=== PATIENT | female | born 1980 | race Caucasian/White ===

== ENCOUNTER 2016-12-28 13:42 | Emergency (ER) | payer SELFPAY ==
[2016-12-28 15:19] VITALS: BP 113/65
--- NOTE | 2016-12-28 16:26 | UC ---
Respiratory Complaint HPI - HPI Summary HPI Summary: URI symptoms for a week. Triggering her asthma. Smoker. No fever. Greenish phlegm, sinuses congested. SOB with exertion. Out of her inhaler. NO vomiting. - History of Current Complaint Chief Complaint: UCRespiratory Stated Complaint: COUGH-ASTHMA Time Seen by Provider: 12/28/16 16:09 Hx Obtained From: Patient Hx Last Menstrual Period: 2 weeks ago Onset/Duration: Gradual Onset Timing: Constant Severity Initially: Mild Severity Currently: Moderate Character: Sputum Description: - yellow/green Aggravating Factors: Exertion, Recumbent Position Alleviating Factors: Bronchodilator Associated Signs And Symptoms: Positive: Dyspnea, Wheezing - off and on, URI, Nasal Congestion, Hoarseness, Sinus Discomfort. Negative: Fever, Chills, Pleuritic Chest Pain - Risk Factors Pulmonary Embolism Risk Factors: Negative Cardiac Risk Factors: Negative Pseudomonas Risk Factors: Negative Tuberculosis Risk Factors: Negative - Allergies/Home Medications Allergies/Adverse Reactions: Allergies Allergy/AdvReac Type Severity Reaction Status Date / Time Kiwi Extract Allergy Vomiting Verified 12/28/16 15:18 Shrimp Flavor Allergy Vomiting Verified 12/28/16 15:18 PMH/Surg Hx/FS Hx/Imm Hx Endocrine History Of: Reports: Thyroid Disease - GRAVES DISEASE, HACHIMOTOS THYRIODITIS Denies: Diabetes Cardiovascular History Of: Denies: Cardiac Disorders, Hypertension Respiratory History Of: Reports: Asthma Denies: COPD GI/ History Of: Denies: Ulcer - Surgical History Surgical History: Yes Surgery Procedure, Year, and Place: Right tube removed r/t ectopic - Family History Known Family History: Positive: Respiratory Disease - asthma - Social History Occupation: Employed Full-time Lives: With Family Alcohol Use: Weekly Substance Use Type: Marijuana Substance Use Comment - Amount & Last Used: 3 days Smoking Status (MU): Heavy Every Day Tobacco Smoker Type: Cigarettes Amount Used/How Often: 1/2 - 1 ppd Length of Time of Smoking/Using Tobacco: started age 15 Have You Smoked in the Last Year: Yes Household Exposure Type: Cigarettes Review of Systems Constitutional: Fatigue Skin: Negative Eyes: Negative ENT: Nasal Discharge Respiratory: Shortness Of Breath, Cough Cardiovascular: Negative Gastrointestinal: Negative Genitourinary: Negative Motor: Negative Neurovascular: Negative Musculoskeletal: Negative Neurological: Negative Psychological: Negative All Other Systems Reviewed And Are Negative: Yes Physical Exam Triage Information Reviewed: Yes Appearance: Well-Appearing, No Pain Distress, Well-Nourished Vital Signs: Initial Vital Signs Temp 98.1 F 12/28/16 15:16 Pulse 90 12/28/16 15:16 Resp 16 12/28/16 15:16 BP 113/65 12/28/16 15:16 Pulse Ox 99 12/28/16 15:16 Vital Signs Reviewed: Yes Eye Exam: Normal ENT: Positive: Pharynx normal, Nasal congestion, TMs normal, Tonsillar swelling , Tonsillar exudate, Muffled/hoarse voice Neck exam: Normal Neck: Positive: Supple Respiratory Exam: Normal Respiratory: Positive: Lungs clear Cardiovascular Exam: Normal Musculoskeletal Exam: Normal Neurological Exam: Normal Psychological Exam: Normal Skin Exam: Normal UC Diagnostic Evaluation - Laboratory O2 Sat by Pulse Oximetry: 99 Respiratory Course/Dx - Differential Dx/Diagnosis Differential Diagnosis/HQI/PQRI: Bronchitis, Lower Resp Infection, Sinusitis Provider Diagnoses: URI Discharge - Discharge Plan Condition: Stable Disposition: HOME Prescriptions: Albuterol HFA INHALER* [Ventolin HFA Inhaler*] 1 - 2 puff INH Q4H PRN #1 mdi PRN Reason: Wheezing Amoxicillin CAP* 500 mg PO TID #30 cap Benzonatate CAP* [Tessalon CAP*] 100 mg PO TID PRN #30 cap PRN Reason: Cough predniSONE TAB* [Deltasone TAB*] 20 mg PO DAILY #14 tab Patient Education Materials: Upper Respiratory Infection (ED), Bronchospasm (ED ) Forms: *Work Release Referrals: Velasquez ADAMS,Jorje Segal [Primary Care Provider] -
== END 2016-12-28 16:28 | disposition home or self-care (01) ==
LOC: UCCORT 13:42
DX: J06.9 Acute upper respiratory infection, unspecified (principal); F12.90 Cannabis use, unspecified, uncomplicated; F17.210 Nicotine dependence, cigarettes, uncomplicated
CPT/HCPCS: 99212; G0463

== ENCOUNTER 2017-04-17 12:45 | Emergency (ER) | payer SELFPAY ==
[2017-04-17 13:11] VITALS: BP 144/97
--- NOTE | 2017-04-17 13:17 | UC ---
[facility] HPI - HPI Summary HPI Summary: complaint of dental pain that started approx 1.5 weeks ago pain has increased over the last 2 days lower left jaw and 3 teeth in the back are painful constant throbbing pain that radiates into her face and neck pain is worse with any chewing, sensitive to cold and heat bad taste in her mouth denies fever and chills has dental appt - [facility] taking advil , acetaminophen or ibuprofen with some relief - History of Current Complaint Chief Complaint: UCDentalProblem Stated Complaint: DENTAL PAIN Time Seen by Provider: 04/17/17 13:05 Hx Obtained From: Patient Hx Last Menstrual Period: 03/24/17 - Allergies/Home Medications Allergies/Adverse Reactions: Allergies Allergy/AdvReac Type Severity Reaction Status Date / Time Kiwi Extract Allergy Vomiting Verified 04/17/17 12:58 Shrimp Flavor Allergy Vomiting Verified 04/17/17 12:58 Home Medications: Home Medications Ibuprofen [Advil] 400 mg PO Q6HR PRN 04/17/17 [History Confirmed 04/17/17] Naproxen Sodium-Diphenhydramin [Aleve PM 220-25 mg] 1 tab PO BID PRN 04/17/17 [ History Confirmed 04/17/17] PMH/Surg Hx/FS Hx/Imm Hx Previously Healthy: Yes Endocrine History Of: Reports: Thyroid Disease - GRAVES DISEASE, HACHIMOTOS THYRIODITIS Denies: Diabetes Cardiovascular History Of: Denies: Cardiac Disorders, Hypertension Respiratory History Of: Reports: Asthma Denies: COPD GI/ History Of: Denies: Ulcer - Surgical History Surgical History: Yes Surgery Procedure, Year, and Place: Right fallopian tube removed r/t ectopic - Family History Known Family History: Positive: Respiratory Disease - asthma Negative: Cardiac Disease, Hypertension - Social History Occupation: Employed Full-time Lives: With Family Alcohol Use: Occasionally Substance Use Type: None, Marijuana Substance Use Comment - Amount & Last Used: 3 days Smoking Status (MU): Heavy Every Day Tobacco Smoker Type: Cigarettes Amount Used/How Often: 1 ppd Length of Time of Smoking/Using Tobacco: started age 15 Have You Smoked in the Last Year: Yes Household Exposure Type: Cigarettes Cessation Counseling: Patient Advised to Stop Review of Systems Constitutional: Negative Skin: Negative Eyes: Negative ENT: Dental Pain Respiratory: Negative Cardiovascular: Negative Gastrointestinal: Negative Genitourinary: Negative Motor: Negative Neurovascular: Negative Musculoskeletal: Negative Neurological: Negative Psychological: Negative All Other Systems Reviewed And Are Negative: Yes Physical Exam Triage Information Reviewed: Yes Appearance: Well-Nourished, Pain Distress, Obese Vital Signs: Initial Vital Signs Temp 97.8 F 04/17/17 12:50 Pulse 89 04/17/17 12:50 Resp 16 04/17/17 12:50 BP 144/97 04/17/17 12:50 Pulse Ox 100 04/17/17 12:50 Vital Signs Reviewed: Yes Eyes: Positive: Conjunctiva Clear ENT: Positive: Pharynx normal, TMs normal. Negative: Nasal congestion Dental: Positive: Gross Decay/Caries @ - 17 and 18 Neck: Positive: No Lymphadenopathy Respiratory: Positive: Lungs clear, Normal breath sounds, No respiratory distress Cardiovascular: Positive: RRR, No Murmur, Pulses Normal Abdomen Description: Positive: Nontender, Soft Bowel Sounds: Positive: Present Musculoskeletal: Positive: No Edema Neurological: Positive: Alert Psychological Exam: Normal Skin Exam: Normal Dental Complaint Course/Dx - Course Course Of Treatment: exam completed. will treat with antibiotic d/t swelling in her gums surrounding dental caries. pt currently trying to get - reviewed available safety rating of antibiotics and pt willing to take risk at this time - Differential Dx/Diagnosis Differential Diagnosis/Dx: Dental Abscess, Dental Caries Provider Diagnoses: dental pain , dental caries, elevated blood pressure Discharge - Discharge Plan Condition: Stable Disposition: HOME Prescriptions: Amoxicillin/Clavulanate TAB* [Augmentin TAB 875*] 875 mg PO BID #20 tab Patient Education Materials: Dental Abscess (ED) Referrals: Velasquez ADAMS,Jorje Segal [Primary Care Provider] - Additional Instructions: ABSCESS What is an Abscess? An abscess is a collection of pus caused by an infection. It may be a simple infected hair follicle, a boil, or an infection caused by a puncture wound, an untreated wound, or an abrasion. The abscess may come to a head and rupture. Sometimes the abscess may need to be cut open and drained to remove the pus and tissue. Symptoms May Include: Skin redness over the infected area Tight, glossy, "stretched" appearance of the skin Pain or tenderness of the area The affected area may be warm or hot to touch Thin red line (along a vein) from the abscess toward the heart Fever Treatment Recommendations: Apply warm wet compresses to the infected area several times a day. If a dressing was applied, keep it clean and dry. The healthcare provider may have prescribed an antibiotic medicine. The medicine should be taken until it is completely gone, even if you are feeling better. If you stop taking the medicine early, the infection may not be completely gone, and the medication may not work the next time. You should have the abscess rechecked by your healthcare provider as instructed by the emergency department healthcare provider. If a drain was put in the abscess, keep the dressing clean and dry. You may need to change the dressing if it becomes soaked with drainage. It is very important to follow-up with your own healthcare provider as directed. The drain should be removed and the wound rechecked in 2 to 3 days or as directed. Call Your Doctor or Return Here IF: You are not improving, or the abscess looks like it is getting worse. The wound turns red and starts to swell again, or there are red streaks coming from the wound. You develop a fever that does not go down when you take fever medicine such as acetaminophen (Tylenol). The wound continues to leak pus after the drain is removed. You have any new symptoms that worry you. Your blood pressure is elevated. Please contact your primary care provider within 1 day -4 weeks for further evaluation.
== END 2017-04-17 13:33 | disposition home or self-care (01) ==
LOC: UCEAST 12:45
DX: K02.9 Dental caries, unspecified (principal); R03.0 Elevated blood-pressure reading, without diagnosis of hypertension
CPT/HCPCS: 99212; G0463

== ENCOUNTER 2017-05-03 13:04 | Emergency (ER) | payer SELFPAY ==
[2017-05-03 13:17] VITALS: BP 141/95
--- NOTE | 2017-05-03 13:24 | UC ---
Throat Pain/Nasal Luis HPI - HPI Summary HPI Summary: Throat pain and swelling starting 2 days ago, lots of pain with swallowing. Lives with friend and friend's 4 school-aged children. Denies known fever, nasal congestion, cough, or trouble breathing. Is supposed to work today and tomorrow. No rash or vomiting. - History of Current Complaint Stated Complaint: SORE THROAT Time Seen by Provider: 05/03/17 13:13 Hx Obtained From: Patient Hx Last Menstrual Period: 2 weeks ago ?: No Onset/Duration: Gradual Onset, Lasting Days Cough: None - Allergies/Home Medications Allergies/Adverse Reactions: Allergies Allergy/AdvReac Type Severity Reaction Status Date / Time Kiwi Extract Allergy Vomiting Verified 05/03/17 13:22 Shrimp Flavor Allergy Vomiting Verified 05/03/17 13:22 Home Medications: Home Medications Loratadine [Claritin 10 MG CAP] 10 mg PO DAILY 05/03/17 [History Confirmed 05/03] PMH/Surg Hx/FS Hx/Imm Hx Previously Healthy: Yes - Surgical History Surgical History: Yes Surgery Procedure, Year, and Place: Right tube removed r/t ectopic - Family History Known Family History: Positive: Respiratory Disease - asthma Negative: Cardiac Disease, Hypertension - Social History 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 [employer] Alcohol Use: Weekly Substance Use Type: Marijuana Substance Use Comment - Amount & Last Used: 3 days Smoking Status (MU): Heavy Every Day Tobacco Smoker Type: Cigarettes Amount Used/How Often: 1/2 - 1 ppd Length of Time of Smoking/Using Tobacco: started age 15 Have You Smoked in the Last Year: Yes Household Exposure Type: Cigarettes Review of Systems Constitutional: Negative Skin: Negative Eyes: Negative ENT: Sore Throat Respiratory: Negative Cardiovascular: Negative Gastrointestinal: Negative Genitourinary: Negative Motor: Negative Neurovascular: Negative Musculoskeletal: Negative Neurological: Negative Psychological: Negative All Other Systems Reviewed And Are Negative: Yes Physical Exam Triage Information Reviewed: Yes Appearance: Well-Appearing, No Pain Distress, Well-Nourished Vital Signs Reviewed: Yes Eye Exam: Normal Eyes: Positive: Conjunctiva Clear ENT: Positive: Hearing grossly normal, Pharyngeal erythema, TMs normal, Tonsillar swelling Dental Exam: Normal Neck: Positive: Enlarged Nodes @ - tonsillar Respiratory Exam: Normal Respiratory: Positive: Chest non-tender, Lungs clear, Normal breath sounds, No respiratory distress, No accessory muscle use Cardiovascular: Positive: RRR - 90s on exam, No Murmur Musculoskeletal Exam: Normal Neurological Exam: Normal Neurological: Positive: Alert Psychological Exam: Normal Skin Exam: Normal Throat Pain/Nasal Course/Dx - Course Course Of Treatment: RST negative - Differential Dx/Diagnosis Provider Diagnoses: Tonsillitis, likely viral. Elevated blood pressure due to pain Discharge - Discharge Plan Condition: Stable Disposition: HOME Patient Education Materials: Tonsillitis (ED) Forms: *Work Release Referrals: Velasquez ADAMS,Jorje Segal [Primary Care Provider] - Additional Instructions: Rapid strep test negative. While you are probably going to be uncomfortable for a few days, I do expect you to have clear and steady improvement through next week. Symptoms should be more or less resolved within 10 days. See your primary care provider or return here if you have new or worsening symptoms.
== END 2017-05-03 13:38 | disposition home or self-care (01) ==
LOC: UCEAST 13:04
DX: J03.90 Acute tonsillitis, unspecified (principal); R03.0 Elevated blood-pressure reading, without diagnosis of hypertension; Z72.0 Tobacco use
CPT/HCPCS: 84702; 87651; 99211; G0463

== ENCOUNTER 2017-08-20 21:59 | Emergency (ER) | payer SELFPAY ==
[2017-08-20 22:06] VITALS: BP 135/87
[2017-08-20] MEDS ORDERED: Azithromycin TAB* 250 MG PO ONE (22:13)
[2017-08-20] MEDS ORDERED: guaiFENesin/CODIEN 100MG-10MG* 5 ML UDC PO ONE (22:13)
--- NOTE | 2017-08-20 22:13 | UC ---
Respiratory Complaint HPI - HPI Summary HPI Summary: 37 YEAR OLD FEMALE PRESENTS WITH COMPLAINS OF COUGH AND CHEST CONGESTION. - History of Current Complaint Chief Complaint: UCRespiratory Stated Complaint: SORE THROAT, CHEST CONGESTION, AND ANXIETY Time Seen by Provider: 08/20/17 22:10 Hx Obtained From: Patient Hx Last Menstrual Period: 08/08/17 Onset/Duration: Sudden Onset Severity Initially: Moderate Severity Currently: Moderate Pain Scale Used: 0-10 Numeric - 5 Aggravating Factors: Deep Breaths Alleviating Factors: Bronchodilator, Upright Position Associated Signs And Symptoms: Positive: Fever, Chills, Wheezing, Nasal Congestion, Sinus Discomfort Related History: Seasonal Allergies - Allergies/Home Medications Allergies/Adverse Reactions: Allergies Allergy/AdvReac Type Severity Reaction Status Date / Time Kiwi Extract Allergy Vomiting Verified 08/20/17 22:06 Shrimp Flavor Allergy Vomiting Verified 08/20/17 22:06 PMH/Surg Hx/FS Hx/Imm Hx Previously Healthy: Yes - Surgical History Surgical History: Yes Surgery Procedure, Year, and Place: Right tube removed r/t ectopic - Family History Known Family History: Positive: Respiratory Disease - asthma Negative: Cardiac Disease, Hypertension - Social History Alcohol Use: Weekly Substance Use Type: Marijuana Substance Use Comment - Amount & Last Used: 3 days Smoking Status (MU): Heavy Every Day Tobacco Smoker Type: Cigarettes Amount Used/How Often: 1/2 - 1 ppd Length of Time of Smoking/Using Tobacco: started age 15 Have You Smoked in the Last Year: Yes Household Exposure Type: Cigarettes Review of Systems Constitutional: Negative Skin: Negative Eyes: Negative ENT: Negative Respiratory: Shortness Of Breath, Cough Cardiovascular: Negative Gastrointestinal: Negative Genitourinary: Negative Motor: Negative Neurovascular: Negative Musculoskeletal: Negative Neurological: Negative Psychological: Negative All Other Systems Reviewed And Are Negative: Yes Physical Exam Triage Information Reviewed: Yes Appearance: Well-Appearing Vital Signs: Initial Vital Signs Temp 36.9 C 08/20/17 22:02 Pulse 109 08/20/17 22:02 Resp 20 08/20/17 22:02 BP 135/87 08/20/17 22:02 Pulse Ox 100 08/20/17 22:02 Vital Signs Reviewed: Yes Eye Exam: Normal ENT Exam: Normal Dental Exam: Normal Neck exam: Normal Neck: Positive: 1 Respiratory: Positive: Rhonchi, Wheezing Cardiovascular Exam: Normal Abdominal Exam: Normal Musculoskeletal Exam: Normal Neurological Exam: Normal Psychological Exam: Normal Skin Exam: Normal UC Diagnostic Evaluation - Laboratory O2 Sat by Pulse Oximetry: 100 Respiratory Course/Dx - Differential Dx/Diagnosis Provider Diagnoses: COUGH. CHEST CONGESTION. NAUSEA. VOMITTING Discharge - Discharge Plan Condition: Stable Disposition: HOME Prescriptions: Albuterol HFA INHALER* [Ventolin HFA Inhaler*] 1 puff INH Q6H PRN #1 mdi PRN Reason: Wheezing Azithromyxin JORGE (NF) [Z-Jorge (Zithromax) 250 mg tabs #6] 2 tab PO .TODAY, THEN 1 DAILY #6 tab guaiFENesin/CODIEN 100MG-10MG* [Robitussin AC 100Mg-10Mg*] 5 ml PO Q6H PRN #120 ml MDD 20 ML PRN Reason: Cough predniSONE TAB* [Deltasone TAB*] 40 mg PO DAILY #8 tab Patient Education Materials: Cold Symptoms (ED), Asthma (ED), Bronchospasm (ED) Referrals: Velasquez ADAMS,Jorje Segal [Primary Care Provider] -
[2017-08-20] MEDS ORDERED: predniSONE TAB* 20 MG PO ONE (22:14)
[2017-08-20] MEDS ORDERED: Albuterol 2.5 MG/3 ML NEB.SOL* (0.083%) INH ONE (22:14)
== END 2017-08-20 22:45 | disposition home or self-care (01) ==
LOC: UCEAST 21:59
DX: R05 Cough (principal); R09.89 Other specified symptoms and signs involving the circulatory and respiratory systems; R11.2 Nausea with vomiting, unspecified; F12.90 Cannabis use, unspecified, uncomplicated; F17.210 Nicotine dependence, cigarettes, uncomplicated
CPT/HCPCS: 99213; A9270-GY; G0463; J7512

== ENCOUNTER 2017-09-10 09:25 | Emergency (ER) | payer SELFPAY ==
[2017-09-10 10:20] VITALS: BP 149/85
--- NOTE | 2017-09-10 10:45 | UC ---
Dental HPI - HPI Summary HPI Summary: THREE DAYS OF BILATERAL LOWER DENTAL PAIN. HAD SIMILAR PROBLEM IN MARCH 2017, HAD DENTAL APPT BUT CANCELLED APPT. NO FEVER. HAS HAD SINUS CONGESTION FOR TWO WEEKS. - History of Current Complaint Chief Complaint: UCDentalProblem Stated Complaint: DENTAL PAIN Time Seen by Provider: 09/10/17 10:02 Hx Obtained From: Patient, Family/Inventory Checker Hx Last Menstrual Period: 08/20/17 Onset/Duration: Gradual Onset, Lasting Weeks, Worse Since - 3 DAYS Severity: Moderate Pain Intensity: 10 Pain Scale Used: 0-10 Numeric - Allergies/Home Medications Allergies/Adverse Reactions: Allergies Allergy/AdvReac Type Severity Reaction Status Date / Time Kiwi Extract Allergy Vomiting Verified 09/10/17 09:58 Shrimp Flavor Allergy Vomiting Verified 09/10/17 09:58 Home Medications: Home Medications Albuterol HFA INHALER* [Ventolin HFA Inhaler*] 1 - 2 puff INH Q4H PRN 09/10/17 [ History Confirmed 09/10/17] Ibuprofen TAB* [Advil TAB*] 400 mg PO Q6H PRN 09/10/17 [History Confirmed ] Naproxen Sodium [Naproxen Sodium 220 mg] 440 mg PO Q12H PRN 09/10/17 [History Confirmed 09/10/17] PMH/Surg Hx/FS Hx/Imm Hx Previously Healthy: Yes - Surgical History Surgical History: Yes Surgery Procedure, Year, and Place: Right tube removed r/t ectopic - Family History Known Family History: Positive: Respiratory Disease - asthma Negative: Cardiac Disease, Hypertension - Social History Occupation: Employed Full-time Lives: With Family Alcohol Use: Occasionally Substance Use Type: None Substance Use Comment - Amount & Last Used: 3 days Smoking Status (MU): Heavy Every Day Tobacco Smoker Type: Cigarettes Amount Used/How Often: 1 PPD Length of Time of Smoking/Using Tobacco: Since Age 19 Have You Smoked in the Last Year: Yes Household Exposure Type: Cigarettes Cessation Counseling: Patient Advised to Stop - Immunization History Most Recent Influenza Vaccination: Not the 2016/2017 Season Review of Systems Constitutional: Negative Skin: Negative Eyes: Negative ENT: Dental Pain, Nasal Discharge, Sinus Congestion Respiratory: Cough Cardiovascular: Negative Gastrointestinal: Negative Genitourinary: Negative Motor: Negative Neurovascular: Negative Musculoskeletal: Negative Neurological: Negative Psychological: Negative Is Patient Immunocompromised?: No All Other Systems Reviewed And Are Negative: Yes Physical Exam Triage Information Reviewed: Yes Appearance: Well-Appearing, Well-Nourished, Pain Distress - MODERATE Vital Signs: Initial Vital Signs Temp 98.2 F 09/10/17 09:56 Pulse 88 09/10/17 09:56 Resp 16 09/10/17 09:56 BP 149/85 09/10/17 09:56 Pulse Ox 100 09/10/17 09:56 Vital Signs Reviewed: Yes Eye Exam: Normal ENT: Positive: Nasal congestion, TM bulging, TM dull Dental: Positive: Percussion Tenderness @ - 18, 17, 31, 32 Neck exam: Normal Neck: Positive: Supple, Nontender, No Lymphadenopathy Respiratory Exam: Normal Respiratory: Positive: Chest non-tender, Lungs clear, Normal breath sounds, No respiratory distress, No accessory muscle use, Respiratory distress Cardiovascular Exam: Normal Cardiovascular: Positive: RRR, No Murmur, Pulses Normal, Brisk Capillary Refill , Tachycardia Abdominal Exam: Normal Musculoskeletal Exam: Normal Neurological Exam: Normal Psychological Exam: Normal Psychological: Positive: Normal Response To Family Skin Exam: Normal Dental Complaint Course/Dx - Differential Dx/Diagnosis Differential Diagnosis/Dx: Post Extraction Pain, TMJ Syndrome, Tonsillitis Provider Diagnoses: ODONTOGENIC PAIN (#17,18, 31, 32); SINUSITIS Discharge - Discharge Plan Condition: Stable Disposition: HOME Prescriptions: Amoxicillin/Clavulanate TAB* [Augmentin TAB 875*] 875 mg PO BID #20 tab Chlorhexidine MOUTHWASH 0.12%* [Peridex Mouth Wash 0.12%*] 15 ml MT BID #150 ml Patient Education Materials: Dental Abscess (ED), Sinusitis (ED), Toothache (ED ) Forms: *Work Release Referrals: Velasquez ADAMS,Jorje Segal [Primary Care Provider] - [facility]: 1 - PAIN HERE 2 - PAIN HERE
== END 2017-09-10 10:35 | disposition home or self-care (01) ==
LOC: UCCORT 09:25
DX: K08.89 Other specified disorders of teeth and supporting structures (principal); J32.9 Chronic sinusitis, unspecified; F17.210 Nicotine dependence, cigarettes, uncomplicated; Z71.6 Tobacco abuse counseling; Z91.013 Allergy to seafood; Z91.02 Food additives allergy status
CPT/HCPCS: 99212; G0463

== ENCOUNTER 2017-10-23 21:18 | Emergency (ER) | payer SELFPAY ==
[2017-10-23] MEDS ORDERED: LORazepam INJ* 2 MG/ML 1 ML VIAL IM ONE (21:41)
--- NOTE | 2017-10-23 21:45 | UC ---
Respiratory Complaint HPI - HPI Summary HPI Summary: 37yo female presents with 2 days of cough felt tight and took albuterol she often has anxiety and this exacerbates it feels light headed and SOB pulse rapid - History of Current Complaint Chief Complaint: UCRespiratory Stated Complaint: resp complaint Time Seen by Provider: 10/23/17 21:28 Hx Obtained From: Patient Hx Last Menstrual Period: one week ago Onset/Duration: Gradual Onset, Lasting Days Timing: Constant Severity Initially: Mild Severity Currently: Severe Pain Intensity: 2 Pain Scale Used: 0-10 Numeric Character: Cough: Nonproductive Associated Signs And Symptoms: Positive: Dyspnea, Wheezing - Allergies/Home Medications Allergies/Adverse Reactions: Allergies Allergy/AdvReac Type Severity Reaction Status Date / Time Kiwi Extract Allergy Vomiting Verified 10/23/17 21:24 Shrimp Flavor Allergy Vomiting Verified 10/23/17 21:24 PMH/Surg Hx/FS Hx/Imm Hx Previously Healthy: Yes Endocrine History: Other Other Endocrine History: Graves Disease Respiratory History: Asthma Psychological History: Anxiety - Surgical History Surgical History: Yes Surgery Procedure, Year, and Place: Right tube removed r/t ectopic - Family History Known Family History: Positive: Respiratory Disease - asthma Negative: Cardiac Disease, Hypertension - Social History Alcohol Use: Occasionally Substance Use Type: Marijuana Substance Use Comment - Amount & Last Used: 3 days Smoking Status (MU): Heavy Every Day Tobacco Smoker Type: Cigarettes Amount Used/How Often: 1/2 - 1 ppd Length of Time of Smoking/Using Tobacco: started age 15 Have You Smoked in the Last Year: Yes Household Exposure Type: Cigarettes - Immunization History Most Recent Influenza Vaccination: Not the 2016/2017 Season Review of Systems Constitutional: Negative Skin: Negative Eyes: Negative ENT: Negative Respiratory: Shortness Of Breath, Cough Cardiovascular: Negative Gastrointestinal: Negative Genitourinary: Negative Motor: Negative Neurovascular: Negative Musculoskeletal: Negative Neurological: Negative Psychological: Anxious Is Patient Immunocompromised?: No All Other Systems Reviewed And Are Negative: Yes Physical Exam Triage Information Reviewed: Yes Appearance: Well-Appearing, No Pain Distress, Well-Nourished Vital Signs: Initial Vital Signs Temp 98.1 F 10/23/17 21:21 Pulse 116 10/23/17 21:21 Resp 18 10/23/17 21:21 BP 129/97 10/23/17 21:21 Pulse Ox 100 10/23/17 21:21 Vital Signs Reviewed: Yes Eyes: Positive: Conjunctiva Clear ENT: Positive: Hearing grossly normal, Uvula midline. Negative: Nasal congestion, Nasal drainage, Muffled voice, Hoarse voice, Dental tenderness, Sinus tenderness Neck: Positive: Supple, Nontender, No Lymphadenopathy Respiratory: Positive: Lungs clear, Normal breath sounds, No respiratory distress, No accessory muscle use Cardiovascular: Positive: RRR, No Murmur, Tachycardia - 110 during my exam Musculoskeletal: Positive: ROM Intact, No Edema Neurological: Positive: Alert Psychological Exam: Normal UC Diagnostic Evaluation - Laboratory O2 Sat by Pulse Oximetry: 100 Re-Evaluation - Re-Evaluation First Eval Re-Evaluation Time: 22:31 Change: Improved - feels much better no longer tachy Respiratory Course/Dx - Differential Dx/Diagnosis Provider Diagnoses: bronchitis. anxiety Discharge - Discharge Plan Condition: Stable Disposition: HOME Prescriptions: Albuterol HFA INHALER* [Ventolin HFA Inhaler*] 2 puff INH QID #1 mdi Amoxicillin PO (*) [Amoxicillin 875 MG (*)] 875 mg PO BID #20 tab hydrOXYzine HCL TAB* [Atarax TAB*] 25 mg PO QID PRN #20 tab PRN Reason: Anxiety Prednisone [Deltasone] 40 mg PO DAILY #10 tab Referrals: Velasquez ADAMS,Jorje Segal [Primary Care Provider] - [facility] [Outside] - As Soon As Possible Additional Instructions: please return for new or worsening symptoms
[2017-10-23 22:22] VITALS: BP 129/86
== END 2017-10-23 22:38 | disposition home or self-care (01) ==
LOC: UCEAST 21:18
DX: J40 Bronchitis, not specified as acute or chronic (principal); F12.980 Cannabis use, unspecified with anxiety disorder; Z72.0 Tobacco use
CPT/HCPCS: 96372; 99212; G0463; J2060

== ENCOUNTER 2018-01-08 22:57 | Emergency (ER) | payer SELFPAY ==
--- NOTE | 2018-01-09 00:27 | ED ---
Throat Pain/Nasal Congestion - HPI Summary HPI Summary: 37 female presents to ED with complaints of right lower dental pain that began a few days ago and has worsened since. Patient states she has been suffering from dental pain for the past few weeks and has been on amoxicillin and then clindamycin. Has been off antibiotics for a week, pain and infection improved however appears to have returned. 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 Is awaiting for her dentist to pull fractured tooth. Concerned that infection has returned due to pain, throbbing and unable to chew. No redness or drainage. No other complaints at this time. Denies fever. No PMHx. Has been taking naproxen, ibuprofen, chlorahexidine, salt water swishes, oral gel, and tylenol without relief. 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 Denies: Hx Diabetes Cardiovascular History: Denies: Hx Hypertension Respiratory History: Reports: Hx Asthma Denies: Hx Chronic Obstructive Pulmonary Disease (COPD) GI History: Denies: Hx Ulcer - Surgical History Surgery Procedure, Year, and Place: Right tube removed r/t ectopic - Immunization History Immunizations Up to Date: Yes Infectious Disease History: No Infectious Disease History: Denies: Hx Clostridium Difficile, Hx Hepatitis, Hx Human Immunodeficiency Virus (HIV), Hx of Known/Suspected MRSA, Hx Shingles, Hx Tuberculosis, Hx Known/ Suspected VRE, Hx Known/Suspected VRSA, History Other Infectious Disease, Traveled Outside the [place] in Last 30 Days - Family History Known Family History: Positive: Respiratory Disease - asthma Negative: Cardiac Disease, Hypertension - Social History Alcohol Use: Occasionally Substance Use Type: Reports: Marijuana Substance Use Comment - Amount & Last Used: 3 days Smoking Status (MU): Heavy Every Day Tobacco Smoker Type: Cigarettes Amount Used/How Often: 1/2 - 1 ppd Length of Time of Smoking/Using Tobacco: started age 15 Have You Smoked in the Last Year: Yes Review of Systems Constitutional: Negative Positive: Dental Pain Cardiovascular: Negative Respiratory: Negative All Other Systems Reviewed And Are Negative: Yes Physical Exam Triage Information Reviewed: Yes Vital Signs On Initial Exam: Initial Vitals Temp Pulse Resp BP Pulse Ox 98.2 F 99 18 146/93 100 01/08/18 23:04 01/08/18 23:04 01/08/18 23:04 01/08/18 23:04 01/08/18 23:04 Vital Signs Reviewed: Yes Appearance: Positive: Well-Appearing, Well-Nourished, Pain Distress - mild to moderate Skin: Positive: Warm, Skin Color Reflects Adequate Perfusion, Dry. Negative: Cold, Numb, Cyanosis @, Pale, Other Head/Face: Positive: Normal Head/Face Inspection ENT: Positive: Normal ENT inspection, Hearing grossly normal, Pharynx normal, TMs normal Dental: Positive: Percussion Tenderness @ - right lower #1-2 tooth, Gross Decay/ Caries @, Dental Fracture @ - #1-2, Other - no obvious edema or erythema. Negative: Cervical Lymphadenopathy Neck: Positive: Supple, Nontender, No Lymphadenopathy Respiratory/Lung Sounds: Positive: Clear to Auscultation, Breath Sounds Present. Negative: Rales, Rhonchi, Wheezes Cardiovascular: Positive: Normal, RRR, Pulses are Symmetrical in both Upper and Lower Extremities. Negative: Murmur, Rub Musculoskeletal: Positive: Normal Neurological: Positive: Normal, Sensory/Motor Intact, Alert, Oriented to Person Place, Time Diagnostics - Vital Signs Vital Signs Temp Pulse Resp BP Pulse Ox 01/08/18 23:04 98.2 F 99 18 146/93 100 - Laboratory Lab Statement: Any lab studies that have been ordered have been reviewed, and results considered in the medical decision making process. EENT Course/Dx - Course Course Of Treatment: i stop Reference #: [id number]. given norco and amoxicillin in ED. although does not appear to be infected externally, does show fracture with nerve exposure, probably source of pain. normal vitals. continue meds at home along with NSAIDs and salt water swishes. follow up dentist. aware of worsening signs and symptoms to watch out for. No other concerns at this time - Differential Diagnoses Differential Diagnoses: Dental Abscess, Dental Caries - Diagnoses Provider Diagnoses: Dental infection, Toothache Discharge - Discharge Plan Condition: Stable Disposition: HOME Prescriptions: Amoxicillin PO (*) [Amoxicillin 500 MG CAP*] 500 mg PO Q12H #19 cap HYDROcodone/ACETAMIN 5-325 MG* [Sacul 5-325 TAB*] 1 tab PO Q6H PRN #10 tab MDD 2 PRN Reason: Pain Patient Education Materials: Dental Abscess (ED), Toothache (ED) Referrals: Velasquez ADAMS,Jorje Segal [Primary Care Provider] - Additional Instructions: continue ibuprofen for pain along with prescribed pain medication as needed for breakthrough pain. antibiotic as directed until entire dose is finished. continue rinses and increasing fluids. any new or worsening symptoms please seek medical attention. follow up with dentist to have tooth pulled.
[2018-01-09] MEDS: Amoxicillin PO (*) 500 MG CAP PO ONE (01:07)
[2018-01-09] MEDS: HYDROcodone/ACETAMIN 5-325 MG* 1 TAB PO ONE (01:07)
[2018-01-09 01:10] VITALS: BP 114/83
== END 2018-01-09 01:08 | disposition home or self-care (01) ==
LOC: ED 22:57
DX: K04.7 Periapical abscess without sinus (principal); K02.9 Dental caries, unspecified; F17.210 Nicotine dependence, cigarettes, uncomplicated
CPT/HCPCS: 99282; A9270-GY

== ENCOUNTER 2018-01-09 19:08 | Emergency (ER) | payer SELFPAY ==
[2018-01-09 19:59] VITALS: BP 158/97
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
== END 2018-01-09 20:58 | disposition home or self-care (01) ==
LOC: UCEAST 19:08
DX: K08.89 Other specified disorders of teeth and supporting structures (principal); R03.0 Elevated blood-pressure reading, without diagnosis of hypertension; Z91.410 Personal history of adult physical and sexual abuse; F17.210 Nicotine dependence, cigarettes, uncomplicated
CPT/HCPCS: 99212; G0463

== ENCOUNTER 2018-01-16 00:02 | Emergency (ER) | payer SELFPAY ==
[2018-01-16 01:37] LABS: ABS Basophils 0.1 10^3/ul (0-0.2); ABS Eosinophils 0.3 10^3/ul (0-0.6); ABS Lymphocytes 2.5 10^3/ul (1.0-4.8); ABS Neutrophils 8.9 10^3/ul (1.5-7.7); ABS Nucleated RBC 0 10^3/ul; Eosinophil % 2.4 % (0-6); Hematocrit 42 % (35-47); Hemoglobin 14.3 g/dl (12.0-16.0); Lymphocyte % 19.6 % (25-47); Mean Corpuscular HGB Conc 34 g/dl (31-36); Mean Corpuscular Hemoglobin 32 pg (27-31); Mean Corpuscular Volume 93 fL (80-97); Mean Platelet Volume 8 um3 (7.4-10.4); Nucleated Red Blood Cells % 0; Platelet Count 233 10^3/ul (150-450); Red Blood Count 4.46 10^6/ul (4.0-5.4); Red Cell Distribution Width 13 % (10.5-15); White Blood Count 12.8 10^3/ul (3.5-10.8)
[2018-01-16 01:58] LABS: EGFR Non-African American 87.8 (>60)
[2018-01-16 03:09] VITALS: BP 112/70
--- NOTE | 2018-01-16 03:10 | ED ---
Christopher Joya Angela, scribed for Carter Garcia on 01/16/18 at 0109 . Psychiatric Complaint - HPI Summary HPI Summary: This pt is a 37 y/o female presenting to [facility] for anxiety. Pt reports she feels an ache on her chest and feels short of breath. She states she took 2 hydroxyzine since 22:30 today. She denies SI or HI. Pt would not like a mental health evaluation. PMHx: asthma. Pt is not on oral contraceptive. - History Of Current Complaint Chief Complaint: EDPsychosocial Hx Obtained From: Patient Hx Last Menstrual Period: 12/23/17 Onset/Duration: Lasting Hours, Still Present Timing: Hours Severity Currently: Moderate Character: Anxious Aggravating Factor(s): Nothing Alleviating Factor(s): Nothing Associated Signs And Symptoms: Positive: Negative Has Suicidal: Denies: Thoughts, With A Plan Has Homicidal: Denies: Thoughts, With A Plan - Allergies/Home Medications Allergies/Adverse Reactions: Allergies Allergy/AdvReac Type Severity Reaction Status Date / Time kiwi Allergy Vomiting Verified 01/16/18 00:50 shrimp Allergy Vomiting Verified 01/16/18 00:50 PMH/Surg Hx/FS Hx/Imm Hx Endocrine/Hematology History: 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 Denies: Hx Diabetes Cardiovascular History: Denies: Hx Hypertension Respiratory History: Reports: Hx Asthma Denies: Hx Chronic Obstructive Pulmonary Disease (COPD) GI History: Denies: Hx Ulcer - Surgical History Surgery Procedure, Year, and Place: Right tube removed r/t ectopic - Immunization History Date of Tetanus Vaccine: unk Date of Influenza Vaccine: none Infectious Disease History: No Infectious Disease History: Denies: Hx Clostridium Difficile, Hx Hepatitis, Hx Human Immunodeficiency Virus (HIV), Hx of Known/Suspected MRSA, Hx Shingles, Hx Tuberculosis, Hx Known/ Suspected VRE, Hx Known/Suspected VRSA, History Other Infectious Disease, Traveled Outside the [place] in Last 30 Days - Family History Known Family History: Positive: Respiratory Disease - asthma Negative: Cardiac Disease, Hypertension - Social History Alcohol Use: Rare Substance Use Type: Reports: Marijuana Substance Use Comment - Amount & Last Used: 3 days Smoking Status (MU): Heavy Every Day Tobacco Smoker Type: Cigarettes Amount Used/How Often: 1/2 - 1 ppd Length of Time of Smoking/Using Tobacco: started age 15 Have You Smoked in the Last Year: Yes Review of Systems Negative: Fever, Chills Eyes: Negative ENT: Negative Cardiovascular: Other - chest ache Positive: Shortness Of Breath Positive: Anxious All Other Systems Reviewed And Are Negative: Yes Physical Exam - Summary Physical Exam Summary: Appearance: Well appearing, no pain distress Skin: warm, dry, reflects adequate perfusion Head/face: normal Eyes: EOMI, CLARISSA ENT: normal Neck: supple, nontender Respiratory: CTA, breath sounds present Cardiovascular: RRR, pulses symmetrical Abdomen: nontender, soft Bowel: present Musculoskeletal: normal, strength/ROM intact Neuro: normal, sensory motor intact, A&Ox3 Psych: anxious Triage Information Reviewed: Yes Vital Signs On Initial Exam: Initial Vitals Temp Pulse Resp BP Pulse Ox 98.4 F 97 16 150/88 98 01/16/18 00:10 01/16/18 00:10 01/16/18 00:10 01/16/18 00:10 01/16/18 00:10 Vital Signs Reviewed: Yes Diagnostics - Vital Signs Vital Signs Temp Pulse Resp BP Pulse Ox 01/16/18 00:10 98.4 F 97 16 150/88 98 - Laboratory Lab Results: Lab Results 01/16/18 01/16/18 01/16/18 Range/Units 01:23 01:23 01:23 WBC 12.8 H (3.5-10.8) 10^3/ul RBC 4.46 (4.0-5.4) 10^6/ul Hgb 14.3 (12.0-16.0) g/dl Hct 42 (35-47) % MCV 93 (80-97) fL MCH 32 H (27-31) pg MCHC 34 (31-36) g/dl RDW 13 (10.5-15) % Plt Count 233 (150-450) 10^3/ul MPV 8 (7.4-10.4) um3 Neut % (Auto) 69.4 (38-83) % Lymph % (Auto) 19.6 L (25-47) % [place] % (Auto) 7.8 H (0-7) % Eos % (Auto) 2.4 (0-6) % Baso % (Auto) 0.8 (0-2) % Absolute Neuts (auto) 8.9 H (1.5-7.7) 10^3/ul Absolute Lymphs (auto) 2.5 (1.0-4.8) 10^3/ul Absolute Monos (auto) 1.0 H (0-0.8) 10^3/ul Absolute Eos (auto) 0.3 (0-0.6) 10^3/ul Absolute Basos (auto) 0.1 (0-0.2) 10^3/ul Absolute Nucleated RBC 0 10^3/ul Nucleated RBC % 0 INR (Anticoag Therapy) 0.80 (0.77-1.02) APTT 31.7 (26.0-36.3) seconds D-Dimer, Quantitative < 200 (Less Than 230) ng/mL Sodium 136 (133-145) mmol/L Potassium 3.7 (3.5-5.0) mmol/L Chloride 105 (101-111) mmol/L Carbon Dioxide 25 (22-32) mmol/L Anion Gap 6 (2-11) mmol/L BUN 12 (6-24) mg/dL Creatinine 0.74 (0.51-0.95) mg/dL Est GFR ( Amer) 113.0 (>60) Est GFR (Non-Af Amer) 87.8 (>60) BUN/Creatinine Ratio 16.2 (8-20) Glucose 98 (70-100) mg/dL Calcium 9.3 (8.6-10.3) mg/dL Total Bilirubin 0.20 (0.2-1.0) mg/dL AST 15 (13-39) U/L ALT 15 (7-52) U/L Alkaline Phosphatase 41 (34-104) U/L Troponin I 0.00 (<0.04) ng/mL B-Natriuretic Peptide ( - 100) pg/mL Total Protein 6.5 (6.4-8.9) g/dL Albumin 3.9 (3.2-5.2) g/dL Globulin 2.6 (2-4) g/dL Albumin/Globulin Ratio 1.5 (1-3) Beta HCG, Quant < 0.60 mIU/mL 01/16/18 Range/Units 01:23 WBC (3.5-10.8) 10^3/ul RBC (4.0-5.4) 10^6/ul Hgb (12.0-16.0) g/dl Hct (35-47) % MCV (80-97) fL MCH (27-31) pg MCHC (31-36) g/dl RDW (10.5-15) % Plt Count (150-450) 10^3/ul MPV (7.4-10.4) um3 Neut % (Auto) (38-83) % Lymph % (Auto) (25-47) % [place] % (Auto) (0-7) % Eos % (Auto) (0-6) % Baso % (Auto) (0-2) % Absolute Neuts (auto) (1.5-7.7) 10^3/ul Absolute Lymphs (auto) (1.0-4.8) 10^3/ul Absolute Monos (auto) (0-0.8) 10^3/ul Absolute Eos (auto) (0-0.6) 10^3/ul Absolute Basos (auto) (0-0.2) 10^3/ul Absolute Nucleated RBC 10^3/ul Nucleated RBC % INR (Anticoag Therapy) (0.77-1.02) APTT (26.0-36.3) seconds D-Dimer, Quantitative (Less Than 230) ng/mL Sodium (133-145) mmol/L Potassium (3.5-5.0) mmol/L Chloride (101-111) mmol/L Carbon Dioxide (22-32) mmol/L Anion Gap (2-11) mmol/L BUN (6-24) mg/dL Creatinine (0.51-0.95) mg/dL Est GFR ( Amer) (>60) Est GFR (Non-Af Amer) (>60) BUN/Creatinine Ratio (8-20) Glucose (70-100) mg/dL Calcium (8.6-10.3) mg/dL Total Bilirubin (0.2-1.0) mg/dL AST (13-39) U/L ALT (7-52) U/L Alkaline Phosphatase (34-104) U/L Troponin I (<0.04) ng/mL B-Natriuretic Peptide 20 ( - 100) pg/mL Total Protein (6.4-8.9) g/dL Albumin (3.2-5.2) g/dL Globulin (2-4) g/dL Albumin/Globulin Ratio (1-3) Beta HCG, Quant mIU/mL Result Diagrams: 01/16/18 01:23 18 01:23 Lab Statement: Any lab studies that have been ordered have been reviewed, and results considered in the medical decision making process. - Radiology Chest XR Xray Interpretation: No Acute Changes - negative chest XR. Radiology Interpretation Completed By: ED Physician - EKG 01:17 Cardiac Rate: NL EKG Rhythm: Sinus Rhythm - at 81 bpm EKG Interpretation: No acute changes. Course/Dx - Course Course Of Treatment: Pt is a 37 y/o female who presents with anxiety. Pt reports she feels an ache on her chest and feels short of breath. Denies SI or HI. Bloodwork and chest XR were obtained. Chest XR is negative. Pt will be discharged home with follow up from her PCP. - Differential Dx/Clinical Impression Differential Diagnosis/HQI/PQRI: Positive: Anxiety, Other - pneumonia/acs/pe Provider Diagnosis: Anxiety Discharge - Discharge Plan Condition: Stable Disposition: HOME Patient Education Materials: Anxiety (ED) Referrals: Velasquez ADAMS,Jorje Segal [Primary Care Provider] - 3 Days Additional Instructions: Please follow up with your primary care provider in 3 days. RETURN TO THE ED FOR ANY WORSENING SYMPTOMS. The documentation as recorded by the Christopher saldivar Angela accurately reflects the service I personally performed and the decisions made by Radha wilson Emmanuel.
--- NOTE | 2018-01-16 08:06 | RAD ---
INDICATION: Dyspnea COMPARISON: None TECHNIQUE: PA and lateral views of the chest were obtained. FINDINGS: The heart and mediastinum are normal in size and contour. The lungs are grossly clear. There is no evidence of large pleural effusion. Visualized bones are normal for the patient's age. There is no radiographic evidence of free air beneath the diaphragm IMPRESSION: No radiographic evidence of acute cardiopulmonary disease.
== END 2018-01-16 03:07 | disposition home or self-care (01) ==
LOC: ED 00:02
DX: F41.9 Anxiety disorder, unspecified (principal); R06.02 Shortness of breath; F17.210 Nicotine dependence, cigarettes, uncomplicated
CPT/HCPCS: 36415; 71046; 80053; 83880; 84484; 84702; 85025; 85379; 85610; 85730; 93005; 99282

== ENCOUNTER 2018-01-18 21:35 | Emergency (ER) | payer SELFPAY ==
[2018-01-18 21:44] VITALS: BP 136/91
[2018-01-18] MEDS ORDERED: Albuterol HFA INHALER* 8 gm MDI INH ONE (21:47)
[2018-01-18] MEDS ORDERED: hydrOXYzine HCL TAB* 25 MG PO ONE (21:48)
[2018-01-18] MEDS ORDERED: Albuterol 2.5 MG/3 ML NEB.SOL* (0.083%) INH ONE (21:57)
[2018-01-18] MEDS ORDERED: Albuterol 2.5 MG/3 ML NEB.SOL* (0.083%) ONE (21:58)
[2018-01-18] MEDS ORDERED: Ondansetron ODT TAB* 4 MG PO ONE (22:00)
--- NOTE | 2018-01-18 22:00 | UC ---
Pete Joya Jason, scribed for Prudencio Krueger MD on 01/18/18 at 2152 . Shortness of Breath HPI - HPI Summary HPI Summary: This patient is a 37 year old F presenting to [facility] accompanied by female friend with a chief complaint of SOB since today. The patient states she couldn t find her inhaler for her asthma and began to panic. The last time she used her inhaler was 1 day ago. The patient rates the pain 0/10 in severity. Symptoms aggravated by stress and anxiety. Symptoms alleviated by an inhaler. Patient reports SOB and anxiety. Additionally, the pt has been taking Hydroxyzine. - History of Current Complaint Chief Complaint: UCRespiratory Stated Complaint: ASTHMA Time Seen by Provider: 01/18/18 21:38 Hx Obtained From: Patient Hx Last Menstrual Period: 12/20/17 Onset/Duration: Sudden Onset, Still Present Timing: Constant Aggrevating Factors: Other - stress and anxiety Alleviating Factors: Other - inhaler - Allergy/Home Medications Allergies/Adverse Reactions: Allergies Allergy/AdvReac Type Severity Reaction Status Date / Time kiwi Allergy Vomiting Verified 01/18/18 21:38 shrimp Allergy Vomiting Verified 01/18/18 21:38 Home Medications: Home Medications hydrOXYzine HCL TAB* [Atarax 25 MG TAB*] 25 mg PO QID PRN 01/18/18 [History Confirmed 01/18/18] PMH/Surg Hx/FS Hx/Imm Hx Previously Healthy: No Respiratory History: Asthma Psychological History: Anxiety - Surgical History Surgical History: Yes Surgery Procedure, Year, and Place: Right tube removed r/t ectopic - Family History Known Family History: Positive: Respiratory Disease - asthma Negative: Cardiac Disease, Hypertension - Social History Alcohol Use: None Substance Use Type: None Substance Use Comment - Amount & Last Used: 3 days Smoking Status (MU): Heavy Every Day Tobacco Smoker Type: Cigarettes Amount Used/How Often: 1/2 - 1 ppd Length of Time of Smoking/Using Tobacco: started age 15 Have You Smoked in the Last Year: Yes Household Exposure Type: Cigarettes - Immunization History Most Recent Influenza Vaccination: Not the 2016/2017 Season Review of Systems Respiratory: Shortness Of Breath Psychological: Anxious All Other Systems Reviewed And Are Negative: Yes Physical Exam - Summary Physical Exam Summary: General: well-appearing, no pain distress Skin: warm, color reflects adequate perfusion, dry Head: normal Eyes: EOMI, CLARISSA ENT: normal Neck: supple, nontender Respiratory: CTA, breath sounds present Cardiovascular: RRR Abdomen: soft, nontender Bowel: present Musculoskeletal: normal, strength/ROM intact Neurological: normal, sensory/motor intact, A&O x3 Psychological: anxious Triage Information Reviewed: Yes Vital Signs: Initial Vital Signs Temp 97.7 F 01/18/18 21:40 Pulse 102 01/18/18 21:40 Resp 22 01/18/18 21:40 BP 136/91 01/18/18 21:40 Pulse Ox 100 01/18/18 21:40 Vital Signs Reviewed: Yes Shortness of Breath Dx - Course Course Of Treatment: BP noted and advised to follow up with PCP. Medications reviewed. Allergies noted. In the UC course the patient was given hydroxyzine and an albuterol inhaler. PATIENT WAS IN THE ED 01/16/17; CXR NL, DDIMER NEGATIVE. PATIENT GIVEN ALBUTEROL NEBULIZER AND HYDROXYZINE 25MG AND ZOFRAN PO IN CLINIC. - Differential Dx/Diagnosis Provider Diagnoses: ASTHMA. ANXIETY. elevated BP without dx of HTN Discharge - Discharge Plan Condition: Stable Disposition: HOME Patient Education Materials: Asthma (ED), Anxiety (ED) Referrals: Velasquez ADAMS,Jorje Segal [Primary Care Provider] - Additional Instructions: Your blood pressure was elevated during todays visit; please follow up with your primary care provider within a week for further evaluation. The documentation as recorded by the Pete saldivar Jason accurately reflects the service I personally performed and the decisions made by me, Prudencio Krueger MD.
[2018-01-18] MEDS ORDERED: Ondansetron ODT TAB* 4 MG ONE (22:01)
== END 2018-01-18 22:08 | disposition home or self-care (01) ==
LOC: UCEAST 21:35
DX: F17.210 Nicotine dependence, cigarettes, uncomplicated (principal); F41.9 Anxiety disorder, unspecified; R03.0 Elevated blood-pressure reading, without diagnosis of hypertension
CPT/HCPCS: 99212; A9270-GY; G0463

== ENCOUNTER 2018-01-22 21:47 | Emergency (ER) | payer SELFPAY ==
[2018-01-22 21:57] VITALS: BP 158/112
[2018-01-22] MEDS ORDERED: hydrOXYzine HCL TAB* 25 MG PO ONE (22:02)
[2018-01-22] MEDS ORDERED: Ondansetron ODT TAB* 4 MG PO ONE (22:03)
--- NOTE | 2018-01-22 22:11 | UC ---
UC General HPI - HPI Summary HPI Summary: Pt presents with ongoing anxiety. She has been extensively worked up for this within the last 2 weeks both here and in the ED. She was given a prescription for Hydroxyzine 25mg one-two tabs QID as needed and has been taking this only BID because she is afraid to take it more often. She was advised at the last few visits to schedule an appt with her PCP and a counselor, but she has not done this and says this is because she does not have insurance. She is in the process of getting insurance. Denies fever, chills, SOB, chest pain, abdominal pain, n/v, SI/HI, or wanting to harm herself. - History of Current Complaint Chief Complaint: UCGeneralIllness Stated Complaint: ANXIOUS,SORE THROAT,DENTAL Time Seen by Provider: 01/22/18 22:02 Hx Obtained From: Patient Hx Last Menstrual Period: 3 WEEKS AGO Onset Severity: Mild Current Severity: Mild Pain Intensity: 3 - Allergy/Home Medications Allergies/Adverse Reactions: Allergies Allergy/AdvReac Type Severity Reaction Status Date / Time kiwi Allergy Vomiting Verified 01/22/18 21:57 shrimp Allergy Vomiting Verified 01/22/18 21:57 Home Medications: Home Medications Ibuprofen TAB* [Advil TAB*] 600 mg PO ONCE PRN 01/22/18 [History Confirmed 01/22] PMH/Surg Hx/FS Hx/Imm Hx Respiratory History: Asthma Psychological History: Anxiety - Surgical History Surgical History: Yes Surgery Procedure, Year, and Place: Right tube removed r/t ectopic - Family History Known Family History: Positive: Respiratory Disease - asthma Negative: Cardiac Disease, Hypertension - Social History Occupation: Employed Part-time Lives: With Family Alcohol Use: None Substance Use Type: None Substance Use Comment - Amount & Last Used: 3 days Smoking Status (MU): Current Every Day Smoker Type: Cigarettes Amount Used/How Often: 1 ppd Length of Time of Smoking/Using Tobacco: started age 15 Have You Smoked in the Last Year: Yes Household Exposure Type: Cigarettes - Immunization History Most Recent Influenza Vaccination: Not the 2016/2017 Season Review of Systems Constitutional: Negative Skin: Negative Eyes: Negative ENT: Negative Respiratory: Negative Cardiovascular: Negative Gastrointestinal: Negative Genitourinary: Negative Motor: Negative Neurovascular: Negative Musculoskeletal: Negative Neurological: Negative Psychological: Anxious All Other Systems Reviewed And Are Negative: Yes Physical Exam Triage Information Reviewed: Yes Appearance: No Pain Distress, Well-Nourished, Other: - Tearful. Anxious Vital Signs: Initial Vital Signs Temp 98 F 01/22/18 21:53 Pulse 117 01/22/18 21:53 Resp 20 01/22/18 21:53 BP 158/112 01/22/18 21:53 Pulse Ox 97 01/22/18 21:53 Vital Signs Reviewed: Yes ENT: Positive: Hearing grossly normal, Pharynx normal, TMs normal, Uvula midline. Negative: Pharyngeal erythema, Nasal congestion, Nasal drainage, TM bulging, TM dull, TM red, Tonsillar swelling, Tonsillar exudate, Hoarse voice, Sinus tenderness Neck: Positive: Supple, Nontender, No Lymphadenopathy Respiratory: Positive: Lungs clear, Normal breath sounds, No respiratory distress, No accessory muscle use Cardiovascular: Positive: No Murmur, Tachycardia Neurological: Positive: Alert Psychological: Positive: Other: - Anxious. Tearful. Skin: Negative: rashes Course/Dx - Course Course Of Treatment: Ongoing anxiety with no PCP or counseling. I advised her to take her hydroxyzine as prescribed and will try adding benadryl at bedtime to help her sleep/relax at night. Again, I strongly advised her to schedule an appt with a PCP or call the advocacy center for additional support. - Differential Dx - Multi-Symptom Provider Diagnoses: Anxiety Discharge - Discharge Plan Condition: Stable Disposition: HOME Patient Education Materials: Anxiety (ED) Referrals: Velasquez ADAMS,Jorje Segal [Primary Care Provider] - Additional Instructions: If you develop a fever, shortness of breath, chest pain, new or worsening symptoms - please call your PCP or go to the ED. Your blood pressure was high at todays visit. Please see your primary provider within 4 weeks for recheck and re-evaluation. 1) Please continue to work on obtaining insurance and following up with a PCP for extermination inspector management of your anxiety.
[2018-01-22] MEDS ORDERED: diPHENhydraMINE PO* 25 MG PO ONE ×3 (22:14→22:18)
== END 2018-01-22 22:27 | disposition home or self-care (01) ==
LOC: UCEAST 21:47
DX: F41.9 Anxiety disorder, unspecified (principal); J45.909 Unspecified asthma, uncomplicated; F17.210 Nicotine dependence, cigarettes, uncomplicated
CPT/HCPCS: 99212; A9270-GY; G0463

== ENCOUNTER 2018-01-30 14:02 | Emergency (ER) | payer SELFPAY ==
[2018-01-30 14:45] VITALS: BP 122/82
--- NOTE | 2018-01-30 15:26 | UC ---
Dental HPI - HPI Summary HPI Summary: 37 yoWF c/o recurrent right teeth pain tooth #30 and 31 (#32 was pulled out in the past) down to right mandible and up the right pentecostal, not maxilla. Was here last August and similar complaint and put on abx but put off extracting the rotten teeth/. Now has new insurance and will go next month - History of Current Complaint Chief Complaint: UCDentalProblem Stated Complaint: TOOTH ACHE Time Seen by Provider: 01/30/18 14:54 Hx Last Menstrual Period: 01/30/2018 Pain Intensity: 10 - Allergies/Home Medications Allergies/Adverse Reactions: Allergies Allergy/AdvReac Type Severity Reaction Status Date / Time kiwi Allergy Vomiting Verified 01/30/18 14:35 shrimp Allergy Vomiting Verified 01/30/18 14:35 Home Medications: Home Medications Naproxen Sodium [Aleve] 440 mg PO Q12HR PRN 01/30/18 [History Confirmed 01/30/18 ] PMH/Surg Hx/FS Hx/Imm Hx - Surgical History Surgical History: Yes Surgery Procedure, Year, and Place: Right tube removed r/t ectopic - Family History Known Family History: Positive: Respiratory Disease - asthma Negative: Cardiac Disease, Hypertension - Social History Alcohol Use: None Substance Use Type: None Substance Use Comment - Amount & Last Used: 3 days Smoking Status (MU): Current Some Day Smoker Type: Cigarettes Amount Used/How Often: 1 ppd Length of Time of Smoking/Using Tobacco: started age 15 Have You Smoked in the Last Year: Yes Household Exposure Type: Cigarettes - Immunization History Most Recent Influenza Vaccination: Not the Season Review of Systems Constitutional: Negative Skin: Negative Eyes: Negative ENT: Dental Pain Respiratory: Negative Cardiovascular: Negative Gastrointestinal: Negative Genitourinary: Negative Motor: Negative Neurovascular: Negative Musculoskeletal: Negative Neurological: Negative Psychological: Negative All Other Systems Reviewed And Are Negative: Yes Physical Exam Triage Information Reviewed: Yes Vital Signs: Initial Vital Signs Temp 37.6 C 01/30/18 14:37 Pulse 98 01/30/18 14:37 Resp 18 01/30/18 14:37 BP 122/82 01/30/18 14:37 Pulse Ox 98 01/30/18 14:37 Eye Exam: Normal ENT Exam: Normal Dental Exam: Other Dental: Positive: Gross Decay/Caries @ - teeth #30 and 31 (32 was extracted) with pain radiating to right pentecostal and right mandible, Dental Fracture @, Cervical Lymphadenopathy - right anterior Neck exam: Normal Neck: Positive: 1 Respiratory Exam: Normal Cardiovascular Exam: Normal Abdominal Exam: Normal Musculoskeletal Exam: Normal Neurological Exam: Normal Psychological Exam: Normal Skin Exam: Normal Dental Complaint Course/Dx - Differential Dx/Diagnosis Differential Diagnosis/Dx: Dental Abscess, Dental Caries, Fractured Tooth, Gingivitis, Odontogenic Pain, Peridontic Disease Provider Diagnoses: dental abscess. multiple dental caries Discharge - Discharge Plan Condition: Stable Disposition: HOME Prescriptions: Clindamycin HCl 300 mg PO QID 10 Days #40 capsule Patient Education Materials: Dental Abscess (ED), Toothache (ED) Referrals: Velasquez ADAMS,Jorje Segal [Primary Care Provider] - Additional Instructions: Pls f/u with dentist nahomy
== END 2018-01-30 15:29 | disposition home or self-care (01) ==
LOC: UCEAST 14:02
DX: K04.7 Periapical abscess without sinus (principal); K08.89 Other specified disorders of teeth and supporting structures; Z72.0 Tobacco use
CPT/HCPCS: 99212; G0463

== ENCOUNTER 2018-02-23 23:44 | Emergency (ER) | payer SELFPAY ==
[2018-02-24] MEDS ORDERED: HYDROcodone/ACETAMIN 5-325 MG* 1 TAB PO ONE (01:53)
[2018-02-24] MEDS ORDERED: cefTRIAXone VIAL(*) 1,000 MG VIAL IM ONE (01:54)
[2018-02-24] MEDS ORDERED: Penicillin VK TAB* 250 MG PO ONE (01:55)
[2018-02-24] MEDS ORDERED: Chlorhexidine MOUTHWASH 0.12%* 15 ML UDC SWISH SPIT ONE (02:08)
--- NOTE | 2018-02-24 02:14 | ED ---
Throat Pain/Nasal Congestion - HPI Summary HPI Summary: Patient with history of significant dental pain presents to the ED with right lower jaw pain over #29 and #30. She has had this pain for 2 weeks. She was seen by a dentist in [place] who had given her clindamycin. She states despite the clindamycin, the swelling remains in pain is an 8 out of 10, constant and aching. She denies any radiation of pain down the neck or to the face. There is no erythema or warmth to the cheek. She has had some extractions in the past and has a follow-up to a dentist in 2 weeks to get the back molars of the ipsilateral side extracted. She denies any dysphagia or odynophagia. She has been taking Tylenol and ibuprofen intermittently without relief. She has used [id number] Anbesol without relief. She states in the past she has taken chlorhexidine as well as Augmentin and she believes those have helped. She has never tried a steroid. She denies any other pain or symptoms. Denies fevers, sweats, chills. She is otherwise healthy and takes no medications. - History of Current Complaint Chief Complaint: EDDentalPain Time Seen by Provider: 02/24/18 01:36 Hx Obtained From: Patient Onset/Duration: Sudden Onset Severity: Moderate - Epiglottits Risk Factors Epiglottis Risk Factors: Negative - Allergies/Home Medications Allergies/Adverse Reactions: Allergies Allergy/AdvReac Type Severity Reaction Status Date / Time kiwi Allergy Vomiting Verified 02/23/18 23:50 shrimp Allergy Vomiting Verified 02/23/18 23:50 PMH/Surg Hx/FS Hx/Imm Hx Previously Healthy: Yes Endocrine/Hematology History: 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 Denies: Hx Diabetes Cardiovascular History: Denies: Hx Hypertension Respiratory History: Reports: Hx Asthma Denies: Hx Chronic Obstructive Pulmonary Disease (COPD) GI History: Denies: Hx Ulcer - Surgical History Surgery Procedure, Year, and Place: Right tube removed r/t ectopic - Immunization History Date of Tetanus Vaccine: unk Date of Influenza Vaccine: none Hx Pertussis Vaccination: No Immunizations Up to Date: Unable to Obtain/Confirm Infectious Disease History: No Infectious Disease History: Denies: Hx Clostridium Difficile, Hx Hepatitis, Hx Human Immunodeficiency Virus (HIV), Hx of Known/Suspected MRSA, Hx Shingles, Hx Tuberculosis, Hx Known/ Suspected VRE, Hx Known/Suspected VRSA, History Other Infectious Disease, Traveled Outside the [place] in Last 30 Days - Family History Known Family History: Positive: Respiratory Disease - asthma Negative: Cardiac Disease, Hypertension - Social History Occupation: Employed Full-time Lives: With Family Alcohol Use: None Hx Substance Use: No Substance Use Type: Reports: None Substance Use Comment - Amount & Last Used: 3 days Hx Tobacco Use: Yes Smoking Status (MU): Current Some Day Smoker Type: Cigarettes Amount Used/How Often: 1 ppd Length of Time of Smoking/Using Tobacco: started age 15 Have You Smoked in the Last Year: Yes Review of Systems Constitutional: Negative Negative: Fever, Chills, Fatigue, Skin Diaphoresis Eyes: Negative Positive: Dental Pain Cardiovascular: Negative Genitourinary: Negative Positive: no symptoms reported, see HPI Musculoskeletal: Negative Neurological: Negative Positive: Anxious All Other Systems Reviewed And Are Negative: Yes Physical Exam Triage Information Reviewed: Yes Vital Signs On Initial Exam: Initial Vitals Temp Pulse Resp BP Pulse Ox 98.1 F 102 20 161/97 100 02/23/18 23:48 02/23/18 23:48 02/23/18 23:48 02/23/18 23:48 02/23/18 23:48 Vital Signs Reviewed: Yes Appearance: Positive: Well-Appearing, Well-Nourished Skin: Positive: Warm, Dry Head/Face: Positive: Normal Head/Face Inspection Eyes: Positive: EOMI, CLARISSA, Conjunctiva Clear Dental: Positive: Abscess @ - Right lower jaw pain #29 and #30 Respiratory/Lung Sounds: Positive: Clear to Auscultation, Breath Sounds Present Cardiovascular: Positive: Normal, RRR Musculoskeletal: Positive: Normal, Strength/ROM Intact Neurological: Positive: Speech Normal Psychiatric: Positive: Normal, Affect/Mood Appropriate AVPU Assessment: Alert Diagnostics - Vital Signs Vital Signs Temp Pulse Resp BP Pulse Ox 02/23/18 23:48 98.1 F 102 20 161/97 100 - Laboratory Lab Statement: Any lab studies that have been ordered have been reviewed, and results considered in the medical decision making process. EENT Course/Dx - Course Course Of Treatment: Patient is evaluated for right lower dental pain over #29 and #30. She has a follow-up to her dentist in 2 weeks and has a follow-up to her primary in 2 days. She states she was given clindamycin and she is currently on the fifth day without relief. Swelling remains. Swelling to the right lower jaw is mild. There are no other signs of abscess. The area is not fluctuant. There are no signs of cellulitis to the cheek. There is no erythema or warmth. She is afebrile. Other vital signs are stable. I have discussed at length the treatment options available to the patient. While I have advised she continue to follow with her dentist for likely extraction of the teeth due to return of abscess despite antibiotics, I have advised we change her antibiotics due to no efficacy. She is given penicillin 500 mg 4 times daily. I've advised chlorhexidine mouthwash 15ml 4 times daily. She is given oxycodone, however states she will likely not fill it as this makes her ill, but she would like the option. She is strongly encouraged to take ibuprofen and Tylenol intermittently (every 3 hours should be taking the medication). She is also given prednisone for the swelling. 50 mg once daily 5 days. Ceftriaxone IM given in ED for broad coverage. I have deferred a CT scan at this time, as there is no large amount of swelling, erythema, or warmth. We will try a change of antibiotics and other supportive care at this time but she is encouraged to return for any worsening or changing symptoms. She is okay with this plan and discharge. - Differential Diagnoses Differential Diagnoses: Dental Abscess, Dental Caries, Odontogenic Pain - Diagnoses Provider Diagnoses: Pain, dental Discharge - Sign-Out/Discharge Documenting (check all that apply): Discharge - Discharge Plan Condition: Stable Disposition: HOME Prescriptions: Chlorhexidine MW 0.12% 473ML* [Peridex Mouth Wash 0.12%] 473 ml .SEE ORDER QID # 1 btl oxyCODONE/Acetamin 10/325(NF) [Percocet 10/325 (NF)] 1 tab PO TID #12 tab MDD 3 Penicillin VK 500 MG TAB(NF) [Penicillin VK 500 mg Tab(NF)] 500 mg PO QID #28 tab MDD 4 predniSONE TAB* [Deltasone TAB*] 50 mg PO DAILY #5 tab MDD 1 Patient Education Materials: Dental Abscess (ED) Referrals: Velasquez ADAMS,Jorje Segal [Primary Care Provider] - Additional Instructions: Please call dentist tomorrow to see if you can move up your appointment Penicillin 500 mg 4 times daily Use the chlorhexidine mouthwash - 4 times daily Ibuprofen 600 3 times daily For pain not well controlled with ibuprofen, you may add the oxycodone medication Do not take Tylenol with this! Prednisone 50 mg once daily in the morning for relief You may also get [id number] Ambesol You also may attempt to use alcohol to the area with a cotton swab - Billing Disposition and Condition Condition: STABLE Disposition: HOME Images - Images Dental: 1 - Swelling and pain without erythema or warmth to the cheek
[2018-02-24] MEDS ORDERED: Lidocaine 1%* 5 ML VIAL ONE (02:30)
[2018-02-24 02:47] VITALS: BP 150/90
== END 2018-02-24 02:46 | disposition home or self-care (01) ==
LOC: ED 23:44
DX: K08.89 Other specified disorders of teeth and supporting structures (principal); R68.84 Jaw pain; Z72.0 Tobacco use; F41.9 Anxiety disorder, unspecified
CPT/HCPCS: 96372; 99282; A9270-GY; J0696

== ENCOUNTER 2018-04-16 08:05 | Emergency (ER) | payer OTHER ==
--- OUTSIDE RECORDS SUMMARY | 2018-04-16 08:13 | XMS REPORT ---
:1980 External Reference #:[id number] Author Organization [employer] Address [address] [address] Phone [phone] Care Team Providers Name Role Phone Milly Morris MD Primary Care Physician Unavailable Payers Type Date Identification Numbers Payment Provider Subscriber Commercial Policy Number: [id number] [employer] Mariana Oneill PayID: [id number] [address] [address] [place] [address] Problems Date Description Provider Status Onset: 02/25/2018 Mild intermittent asthma Brandyn Antunez NP Active Onset: 02/25/2018 Anxiety Brandyn Antunez NP Active Family History Date Family Member(s) Problem(s) Comments Father Throat Cancer Living at 56 Mother No Current Problems Social History Type Date Description Comments Marital Status Single 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 [employer] ETOH Use Occasionally consumes alcohol Recreational Drug Use Occassional marijuana Smoking Heavy tobacco smoker (more cut back to almost 5 a than 10 cigarettes/day) day Exercise Type/Frequency Exercises sporadically Allergies, Adverse Reactions, Alerts Date Description Reaction Status Severity Comments 02/25/2018 Kiwi throat close and vomit active 02/25/2018 Animal Hair hives active 02/25/2018 Shrimp throat close and vomit active Medications Medication Date Status Form Strength Qnty SIG Indications Ordering Provider Dulera Active Aerosol 100-5mcg/A 1mon [address] twice a KENNEY Antunez day Ventolin HFA Active Aerosol 108(90Base 18gm 2 puffs by Brandyn 018 ) mcg/Act mouth Harmony [employer] every 4-6 hours as needed Lorazepam Active Tablets 0.5mg 15tabs one tablet F41.1 Brandyn 018 bid as Harmony, [employer] needed for anxiety Escitalopram Active Tablets 10mg 30tabs 1/2 tab F41.1 Brandyn Oxalate 018 once daily KENNEY Antunez for 1 week then increase to 1 tab daily. Hydroxyzine HCL Active Tablets 25mg 60tabs 1-2 F41.1 Brandyn 018 tablets by KENNEY Antunez mouth 4 times daily as needed for anxiety Prednisone Active Tablets 50mg 1 a day Unknown 000 for three days Qvar Hx Aerosol 80mcg/Act 8.700g take 2 J45.20 Brandyn 018 - m puffs KENNEY Antunez twice a 018 day. RInse mouth after use Advair Diskus Hx Aerosol 250-50mcg/ 60unit 1 puff by J45.20 Brandyn 018 - Dose s mouth KENNEY Antunez twice a 018 day Penicillin V Hx Tablets 500mg four times Unknown Potassium 000 - a day for 7 days 018 Vital Signs Date Vital Result Comment 04/03/2018 Weight 236.75 lb Heart Rate 87 /min BP Systolic 124 mmHg BP Diastolic 70 mmHg Body Temperature 96.6 F O2 % BldC Oximetry 95 % 02/25/2018 Weight 243.75 lb Heart Rate 56 /min BP Systolic 128 mmHg BP Diastolic 68 mmHg Body Temperature 97.5 F O2 % BldC Oximetry 98 % Results Description No Information Procedures Description No Information Encounters Type Date Location Provider CPT E/M Dx Office Visit 02/25/2018 1:00p [facility] [place] [address] F41.1 [place] J45.20 E07.9 Plan of Care Future Appointment(s):04/17/2018 1:15 pm - Ochoa Quinonez LCSW at [facility] Internal Medicine - Hyxjstsza67/11/2018 - Brandyn Antunez NPF41.1 Generalized anxiety disorderComments:I am glad that you are feeling better. Continue with the Lexapro at the current diose.If you feel you need to increase that please let me know.Follow up:3 month f/u
--- OUTSIDE RECORDS SUMMARY | 2018-04-16 08:13 | XMS REPORT ---
:1980 External Reference #:[id number] Author Organization [facility] [email or web address] Address [address] [address] Phone [phone] Care Team Providers Name Role Phone Milly Morris MD Primary Care Physician Unavailable Payers Type Date Identification Numbers Payment Provider Subscriber Commercial Policy Number: [id number] [employer] Mariana Oneill PayID: [id number] [address] [address] [place] [address] Problems Date Description Provider Status Onset: 02/25/2018 Mild intermittent asthma Brandyn Antunez NP Active Onset: 02/25/2018 Anxiety Brandyn Antunez NP Active Family History Date Family Member(s) Problem(s) Comments Father Throat Cancer Living at 56 Mother No Current Problems Social History Type Date Description Comments Marital Status Single 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 [employer] ETOH Use Occasionally consumes alcohol Recreational Drug Use Occassional marijuana Smoking Heavy tobacco smoker (more than 10 cigarettes/day) Exercise Type/Frequency Exercises sporadically Allergies, Adverse Reactions, Alerts Date Description Reaction Status Severity Comments 02/25/2018 Kiwi throat close and vomit active 02/25/2018 Animal Hair hives active 02/25/2018 Shrimp throat close and vomit active Medications Medication Date Status Form Strength Qnty SIG Indications Ordering Provider Dulera Active Aerosol 100-5mcg/A 1mon [address] twice a Harmony LOCK TENDER day Ventolin HFA Active Aerosol 108(90Base 18gm 2 puffs by Brandyn 018 ) mcg/Act mouth Harmony, LOCK TENDER every 4-6 hours as needed Lorazepam Active Tablets 0.5mg 15tabs one tablet F41.1 Brandyn 018 bid as Harmony, LOCK TENDER needed for anxiety Escitalopram Active Tablets 10mg 30tabs /2 tab F41.1 Brandyn Oxalate 018 once daily KENNEY Antunez for 1 week then increase to 1 tab daily. Hydroxyzine HCL Active Tablets 25mg 60tabs 1-2 F41.1 Brandyn 018 tablets by KENNEY Antunez mouth 4 times daily as needed for anxiety Penicillin V Active Tablets 500mg four times Unknown Potassium 000 a day for 7 days Prednisone Active Tablets 50mg 1 a day Unknown 000 for three days Qvar Hx Aerosol 80mcg/Act 8.700g take 2 J45.20 Brandyn 018 - m puffs KENNEY Antunez twice a 018 day. RInse mouth after use Advair Diskus Hx Aerosol 250-50mcg/ 60unit 1 puff by J45.20 Brandyn 018 - Dose s mouth KENNEY Antunez twice a 018 day Vital Signs Date Vital Result Comment 02/25/2018 Weight 243.75 lb Heart Rate 56 /min BP Systolic 128 mmHg BP Diastolic 68 mmHg Body Temperature 97.5 F O2 % BldC Oximetry 98 % Results Description No Information Procedures Description No Information Encounters Type Date Location Provider CPT E/M Dx Office Visit 02/25/2018 1:00p [facility] [place] [address] F41.1 [place] J45.20 E07.9 Plan of Care Future Appointment(s):04/17/2018 1:15 pm - Ochoa Quinonez LCSW at [facility] Internal [facility]04/03/2018 8:40 am - Brandyn Antunez NP at [facility]
[2018-04-16 08:21] VITALS: BP 141/87
--- NOTE | 2018-04-16 08:54 | ED ---
Throat Pain/Nasal Congestion - HPI Summary HPI Summary: 38 yo WF h/o dental caries and s/p multiple dental extractions p/w right lower jaw pain associated with tooth #29 needing filling - History of Current Complaint Chief Complaint: UCDentalProblem Time Seen by Provider: 04/16/18 08:15 Hx Obtained From: Patient Severity: Severe Associated Signs And Symptoms: Positive: Negative - Allergies/Home Medications Allergies/Adverse Reactions: Allergies Allergy/AdvReac Type Severity Reaction Status Date / Time kiwi Allergy Vomiting Verified 04/16/18 08:21 shrimp Allergy Vomiting Verified 04/16/18 08:21 Home Medications: Home Medications Escitalopram Oxalate [Lexapro 10 mg] 10 mg PO DAILY 04/16/18 [History Confirmed 04/16/18] PMH/Surg Hx/FS Hx/Imm Hx Previously Healthy: Yes - denta caries Endocrine/Hematology History: 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 Denies: Hx Diabetes Cardiovascular History: Denies: Hx Hypertension Respiratory History: Reports: Hx Asthma Denies: Hx Chronic Obstructive Pulmonary Disease (COPD) GI History: Denies: Hx Ulcer - Surgical History Surgery Procedure, Year, and Place: Right tube removed r/t ectopic - Immunization History Date of Tetanus Vaccine: unk Date of Influenza Vaccine: none Infectious Disease History: No Infectious Disease History: Denies: Hx Clostridium Difficile, Hx Hepatitis, Hx Human Immunodeficiency Virus (HIV), Hx of Known/Suspected MRSA, Hx Shingles, Hx Tuberculosis, Hx Known/ Suspected VRE, Hx Known/Suspected VRSA, History Other Infectious Disease, Traveled Outside the [place] in Last 30 Days - Family History Known Family History: Positive: Respiratory Disease - asthma Negative: Cardiac Disease, Hypertension - Social History Alcohol Use: Occasionally Hx Substance Use: No Substance Use Type: Reports: None Substance Use Comment - Amount & Last Used: 3 days Hx Tobacco Use: Yes Smoking Status (MU): Current Some Day Smoker Type: Cigarettes Amount Used/How Often: 1 ppd Length of Time of Smoking/Using Tobacco: started age 15 Have You Smoked in the Last Year: Yes Review of Systems Constitutional: Negative Eyes: Negative Positive: Dental Pain Cardiovascular: Negative Respiratory: Negative Gastrointestinal: Negative Genitourinary: Negative Musculoskeletal: Negative Skin: Negative All Other Systems Reviewed And Are Negative: Yes Physical Exam Triage Information Reviewed: Yes Vital Signs On Initial Exam: Initial Vitals Temp Pulse Resp BP Pulse Ox 36.9 C 92 18 141/87 100 04/16/18 08:14 04/16/18 08:14 04/16/18 08:14 04/16/18 08:14 04/16/18 08:14 Vital Signs Reviewed: Yes Skin: Positive: Warm Head/Face: Positive: Normal Head/Face Inspection Eyes: Positive: Normal, EOMI Dental: Positive: Gross Decay/Caries @, Dental Fracture @, Other - right mandibular pain over and around tooth #29. Negative: Cervical Lymphadenopathy Neck: Positive: Supple, Nontender Respiratory/Lung Sounds: Positive: Clear to Auscultation Cardiovascular: Positive: Normal Bowel Sounds: Positive: Present Neurological: Positive: Normal Psychiatric: Positive: Normal Diagnostics - Vital Signs Vital Signs Temp Pulse Resp BP Pulse Ox 04/16/18 08:14 36.9 C 92 18 141/87 100 - Laboratory Lab Statement: Any lab studies that have been ordered have been reviewed, and results considered in the medical decision making process. EENT Course/Dx - Course Course Of Treatment: clindamycin for now for presumed dental abscess before pt to f/u with dentist this afternoon per pt - Diagnoses Provider Diagnoses: Abscess, dental, Dental caries noted on examination, Elevated BP without diagnosis of hypertension Discharge - Sign-Out/Discharge Documenting (check all that apply): Discharge/Admit/Transfer - Discharge Plan Condition: Stable Disposition: HOME Prescriptions: Clindamycin HCl 300 mg PO QID 10 Days #40 capsule Patient Education Materials: Toothache (ED), Dental Abscess (ED) Referrals: Brandyn Antunez NP [Primary Care Provider] - Additional Instructions: follow up with dentist - Billing Disposition and Condition Condition: STABLE Disposition: HOME
== END 2018-04-16 08:49 | disposition home or self-care (01) ==
LOC: UCEAST 08:05
DX: K02.9 Dental caries, unspecified (principal); K04.7 Periapical abscess without sinus; R03.0 Elevated blood-pressure reading, without diagnosis of hypertension; F17.210 Nicotine dependence, cigarettes, uncomplicated; Z91.018 Allergy to other foods; Z91.013 Allergy to seafood
CPT/HCPCS: 99212; G0463

== ENCOUNTER 2018-07-11 02:46 | Emergency (ER) | payer OTHER ==
[2018-07-11] MEDS ORDERED: Ibuprofen TAB* 600 MG PO ONE (04:45)
[2018-07-11] MEDS ORDERED: Clindamycin CAP* 150 MG PO ONE (04:45)
[2018-07-11] MEDS ORDERED: Acetaminophen TAB* 325 MG PO ONE (04:45)
--- NOTE | 2018-07-11 04:48 | ED ---
Complex/Multi-Sys Presentation - HPI Summary HPI Summary: This patient is a 38 year old F presenting to [facility] with a chief complaint of left, lower dental pain that began 2 days ago. The patient rates the pain 10/10 in severity. Symptoms aggravated by nothing. Symptoms alleviated by nothing. Patient reports nausea. Patient denies fever, headache, double vision, sore throat, CP, SOB, abd pain, dysuria, edema, and bruising. Patient reports she saw her dentist 2 weeks ago, and finished her prescribed antibiotics one week ago. - History Of Current Complaint Chief Complaint: EDDentalPain Hx Obtained From: Patient Onset/Duration: Sudden Onset, Lasting Days, Still Present Timing: Constant Severity Currently: Severe Severity Initially: Severe Aggravating Factor(s): Nothing Alleviating Factor(s): Nothing Associated Signs And Symptoms: Positive: Other - Positive nausea. Negative denies fever, headache, double vision, sore throat, CP, SOB, abd pain, dysuria, edema, and bruising - Allergies/Home Medications Allergies/Adverse Reactions: Allergies Allergy/AdvReac Type Severity Reaction Status Date / Time kiwi Allergy Vomiting Verified 07/11/18 02:51 shrimp Allergy Vomiting Verified 07/11/18 02:51 PMH/Surg Hx/FS Hx/Imm Hx Previously Healthy: No Endocrine/Hematology History: 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 Denies: Hx Diabetes Cardiovascular History: Denies: Hx Hypertension Respiratory History: Reports: Hx Asthma Denies: Hx Chronic Obstructive Pulmonary Disease (COPD) GI History: Denies: Hx Ulcer - Surgical History Surgery Procedure, Year, and Place: Right tube removed r/t ectopic - Immunization History Date of Tetanus Vaccine: unk Date of Influenza Vaccine: none Infectious Disease History: No Infectious Disease History: Denies: Hx Clostridium Difficile, Hx Hepatitis, Hx Human Immunodeficiency Virus (HIV), Hx of Known/Suspected MRSA, Hx Shingles, Hx Tuberculosis, Hx Known/ Suspected VRE, Hx Known/Suspected VRSA, History Other Infectious Disease, Traveled Outside the [place] in Last 30 Days - Family History Known Family History: Positive: Respiratory Disease - asthma Negative: Cardiac Disease, Hypertension - Social History Occupation: Employed Full-time Lives: Alone Alcohol Use: Occasionally Hx Substance Use: No Substance Use Type: Reports: None Substance Use Comment - Amount & Last Used: 3 days Hx Tobacco Use: Yes Smoking Status (MU): Current Some Day Smoker Type: Cigarettes Amount Used/How Often: 1 ppd Length of Time of Smoking/Using Tobacco: started age 15 Have You Smoked in the Last Year: Yes Review of Systems Negative: Fever Negative: Diplopia Positive: Dental Pain. Negative: Sore Throat Negative: Chest Pain Negative: Shortness Of Breath Positive: Nausea. Negative: Abdominal Pain Negative: dysuria Negative: Edema Negative: Bruising Positive: Headache All Other Systems Reviewed And Are Negative: No Physical Exam - Summary Physical Exam Summary: Appearance: Alert, conversive, nontoxic appearing Skin: Warm, dry, no mottling, no rashes, no contusions HEENT: EOMI, PERRL, moist mucous membranes Dental: Multiple cavities. Left, lower fractured tooth Neck: No masses on the neck, supple Respiratory: Clear to auscultation, breath sounds present, no rales, no rhonchi , no wheezes Cardiovascular: RRR, pulses are symmetrical in both lower and upper extremities Abdomen: Soft, non-tender Bowel Sounds: Present Musculoskeletal: No CVA tenderness, no obvious deformity, moving all extremities in a grossly normal manner Neurological: A&Ox3, CN II-XII Intact, moving all extremities symmetrically Psychiatric: Normal affect and mood Triage Information Reviewed: Yes Vital Signs On Initial Exam: Initial Vitals Temp Pulse Resp BP Pulse Ox 98.1 F 98 16 130/101 99 07/11/18 02:48 07/11/18 02:48 07/11/18 02:48 07/11/18 02:48 07/11/18 02:48 Vital Signs Reviewed: Yes Diagnostics - Vital Signs Vital Signs Temp Pulse Resp BP Pulse Ox 07/11/18 02:48 98.1 F 98 16 130/101 99 - Laboratory Lab Statement: Any lab studies that have been ordered have been reviewed, and results considered in the medical decision making process. Complex Multi-Symp Course/Dx Course Of Treatment: This patient is a 38 year old F presenting to [facility] with a chief complaint of left, lower dental pain that began 2 days ago. The patient rates the pain 10/10 in severity. Patient reports she saw her dentist 2 weeks ago, and finished her prescribed antibiotics one week ago. Physical Exam Findings: Multiple cavities. Left, lower fractured tooth. In the ED course the patient was given Ibuprofen, acetaminophen, and clindamycin. Patient will be discharged with prescription for clindamycin and follow up from PCP. The patient is agreeable with this plan. - Diagnoses Provider Diagnoses: Dental cavities, Tooth fracture Discharge - Sign-Out/Discharge Documenting (check all that apply): Patient Departure - Discharge home - Discharge Plan Condition: Stable Disposition: HOME Prescriptions: Clindamycin HCl 300 mg PO BID #20 capsule Patient Education Materials: Toothache (ED) Referrals: Brandyn Antunez NP [Primary Care Provider] - Additional Instructions: Follow up with your primary care physician and your dentist as soon as possible. return if worse or any new symptoms. Take all medications as previously instructed. It is important to take all medications as previously instructed. Attestations Scribe Attestation: This is yariel Crawley documenting for attending Mavis Gresham MD. User Type: Provider with Scribe Provider Attestation: The documentation recorded by the scribe accurately reflects the service I personally performed and the decisions made by me.
[2018-07-11 05:15] VITALS: BP 144/89
== END 2018-07-11 05:13 | disposition home or self-care (01) ==
LOC: ED 02:46
DX: K03.81 Cracked tooth (principal); K02.9 Dental caries, unspecified; R11.0 Nausea; Z72.0 Tobacco use
CPT/HCPCS: 99282; A9270-GY

== ENCOUNTER 2018-12-22 08:28 | Emergency (ER) | payer SELFPAY ==
[2018-12-22 08:35] VITALS: BP 145/91
--- NOTE | 2018-12-22 10:30 | UC ---
Complaint Female HPI - HPI Summary HPI Summary: PATIENT HAS HAD SEVERAL DAYS OF VAGINAL DISCOMFORT AND POSSIBLE DISCHARGE. THOUGHT SHE MIGHT HAVE A YEAST INFECTION SO USED MONISTAT BUT NO IMPROVEMENT IN SYMPTOMS. WONDERS IF SHE HAS SOMETHING INSIDE LIKE A CONDOM THIS HAS HAPPENED TO HER BEFORE. SHE DENIES ANY ABDOMINAL PAIN. NO NAUSEA/VOMITING. NO FEVER. HAD SEX ABOUT ONE WEEK AGO WITH A NEW PARTNER. USED A CONDOM. LMP 2 WEEKS AGO. IS NOT CONCERNED ABOUT . - History Of Current Complaint Chief Complaint: UCAbdominalPain Stated Complaint: ABD PAIN, NAUSEA Time Seen by Provider: 12/22/18 09:25 Hx Obtained From: Patient Hx Last Menstrual Period: 12/07/18 Onset/Duration: Gradual Onset, Lasting Days, Still Present Timing: Constant Severity Initially: Moderate Severity Currently: Moderate Pain Intensity: 5 Pain Scale Used: 0-10 Numeric Character: Sharp Aggravating Factor(s): Nothing Associated Signs And Symptoms: Positive: Vaginal Discharge. Negative: Fever - Allergies/Home Medications Allergies/Adverse Reactions: Allergies Allergy/AdvReac Type Severity Reaction Status Date / Time kiwi Allergy Vomiting Verified 12/22/18 08:35 shrimp Allergy Vomiting Verified 12/22/18 08:35 PMH/Surg Hx/FS Hx/Imm Hx Respiratory History: Asthma - Surgical History Surgical History: Yes Surgery Procedure, Year, and Place: Right tube removed r/t ectopic - Family History Known Family History: Positive: Respiratory Disease - asthma Negative: Cardiac Disease, Hypertension - Social History Alcohol Use: Occasionally Substance Use Type: None Substance Use Comment - Amount & Last Used: 3 days Smoking Status (MU): Current Some Day Smoker Type: Cigarettes Amount Used/How Often: 1 ppd Length of Time of Smoking/Using Tobacco: started age 15 Have You Smoked in the Last Year: Yes Household Exposure Type: Cigarettes - Immunization History Most Recent Influenza Vaccination: Not the 2017/2018 Season Review of Systems All Other Systems Reviewed And Are Negative: Yes Constitutional: Positive: Negative Respiratory: Positive: Negative Cardiovascular: Positive: Negative Gastrointestinal: Positive: Negative Genitourinary: Positive: Vaginal/Penile Burning, Vaginal/Penile Discharge, Vaginal/Penile Pain, Vaginal/Penile Tenderness. Negative: Dysuria, Frequency, Urgency Physical Exam Triage Information Reviewed: Yes Appearance: Well-Appearing, No Pain Distress, Well-Nourished Vital Signs: Initial Vital Signs Temp 98.6 F 12/22/18 08:32 Pulse 87 12/22/18 08:32 Resp 17 12/22/18 08:32 BP 145/91 12/22/18 08:32 Pulse Ox 100 12/22/18 08:32 Laboratory Tests 12/22/18 09:17 POC Urine Color Yellow POC Urine Clarity Clear POC Urine pH 7.0 POC Ur Specif Hurley 1.010 POC Urine Protein Negative POC Ur Glucose (UA) Negative POC Urine Ketones Negative POC Urine Blood 1+ A POC Urine Nitrite Negative POC Urine Bilirubin Negative POC Urine Urobilinogen 0.2 POC U Leukocyte Esteras Negative Vital Signs Reviewed: Yes Eyes: Positive: Conjunctiva Clear ENT: Positive: Hearing grossly normal Neck: Positive: Supple Respiratory: Positive: No respiratory distress, No accessory muscle use Cardiovascular: Positive: Pulses Normal Abdomen Description: Positive: Nontender, Soft. Negative: CVA Tenderness (R), CVA Tenderness (L), Distended, Guarding Pelvic Exam: Positive: Discharge - THICK CHUNKY WHITE, Lesions - 2 X 2MM WHITE BASED ULCERS (KISSING LESIONS) WITH HALO OF ERYTHEMA PROXIMAL LABIAL FOLDS, Other - INCOMPLETE EXAM DUE TO PT DISCOMFORT Musculoskeletal: Positive: No Edema Neurological: Positive: Alert Psychological: Positive: Age Appropriate Behavior Skin: Positive: Rashes - 2 X 2MM WHITE BASED ULCERS (KISSING LESIONS) WITH HALO OF ERYTHEMA PROXIMAL LABIAL FOLDS Complaint Female Dx - Course Course Of Treatment: ON EXAM PATIENT APPEARS TO HAVE GENITAL HERPES. SHE DENIES HAVING HAD THIS IN THE PAST. WILL GIVE VALTREX FOR ONE WEEK. SWAB SENT FOR TESTING. ADVISED PATIENT SHE MUST NOTIFY HER SEXUAL PARTNERS. VAGINAL VAULT WITH THICK CHUNKY DISCHARGE. WILL COVER WITH DIFLUCAN FOR YEAST VAGINITIS. AFFIRM SENT FOR TESTING. DUE TO PATIENT DISCOMFORT WAS UNABLE TO VISUALIZE CERVIX. ADVISED HER TO KEEP [facility]. WILL TEST URINE FOR GONORRHEA AND CHLAMYDIA. I ALSO ADVISED THAT SHE RECHECK HER URINE IN A COUPLE OF WEEKS TO ENSURE THE BLOOD HAS CLEARED. - Differential Dx/Diagnosis Provider Diagnosis: Genital herpes, Vaginitis Discharge - Sign-Out/Discharge Documenting (check all that apply): Patient Departure All imaging exams completed and their final reports reviewed: No Studies - Discharge Plan Condition: Stable Disposition: HOME Prescriptions: Fluconazole [Diflucan] 1 tab PO ONCE #2 tab Valacyclovir HCl [Valacyclovir] 1,000 mg PO BID #14 tablet Patient Education Materials: Genital Herpes Simplex (ED), Vaginitis (ED), Hematuria (ED) Referrals: Brandyn Antunez NP [Primary Care Provider] - If Needed Additional Instructions: YOU HAVE LESIONS ON YOUR LABIA THAT ARE CONSISTENT WITH GENITAL HERPES. TAKE THE VALACYCLOVIR TWICE DAILY FOR THE FULL COURSE. THIS WILL HELP EXPEDITE RESOLUTION OF YOUR LESIONS. YOU MUST NOTIFY YOUR SEXUAL PARTNERS. SWAB HAS BEEN SENT FOR TESTING. VAGINAL SWAB SENT TO TEST FOR VAGINITIS. DIFLUCAN FOR PROBABLE YEAST VAGINITIS. I WAS UNABLE TO VISUALIZE YOUR CERVIX TODAY. K[facility] A COUPLE OF WEEKS. YOU DID HAVE SOME BLOOD IN YOUR URINE. I WOULD RECOMMEND YOU RE-DO A URINE TEST AT YOUR [facility] APPOINTMENT TO ENSURE THIS HAS CLEARED. URINE WILL ALSO BE TESTED TODAY FOR GONORRHEA AND CHLAMYDIA. WE WILL CALL YOU WITH ANY ABNORMAL RESULTS. - Billing Disposition and Condition Condition: STABLE Disposition: Home
[2018-12-23 11:46] LABS: Neisseria gonorrhoeae (GC) RNA Negative (Negative)
[2018-12-23 20:39] LABS: HSV 1 PCR Negative (Negative); Herpes Source LABIA
--- NOTE | 2018-12-23 21:25 | UC ---
- Progress Note Progress Note: Please call patient. Vaginal swab positive for BV. Metronidazole 500 mg twice daily for 7 days sent to [facility] pharmacy. No alcohol while on this medication. Gonorrhea and chlamydia negative. Course/Dx - Diagnoses Provider Diagnoses: Genital herpes, Vaginitis Discharge - Sign-Out/Discharge Documenting (check all that apply): Post-Discharge Follow Up All imaging exams completed and their final reports reviewed: No Studies - Discharge Plan Condition: Stable Disposition: HOME Prescriptions: Fluconazole [Diflucan] 1 tab PO ONCE #2 tab metroNIDAZOLE [Flagyl 500 MG TAB] 500 mg PO BID #14 tab Valacyclovir HCl [Valacyclovir] 1,000 mg PO BID #14 tablet Patient Education Materials: Genital Herpes Simplex (ED), Vaginitis (ED), Hematuria (ED) Referrals: Brandyn Antunez NP [Primary Care Provider] - If Needed Additional Instructions: YOU HAVE LESIONS ON YOUR LABIA THAT ARE CONSISTENT WITH GENITAL HERPES. TAKE THE VALACYCLOVIR TWICE DAILY FOR THE FULL COURSE. THIS WILL HELP EXPEDITE RESOLUTION OF YOUR LESIONS. YOU MUST NOTIFY YOUR SEXUAL PARTNERS. SWAB HAS BEEN SENT FOR TESTING. VAGINAL SWAB SENT TO TEST FOR VAGINITIS. DIFLUCAN FOR PROBABLE YEAST VAGINITIS. I WAS UNABLE TO VISUALIZE YOUR CERVIX TODAY. K[facility] IN A COUPLE OF WEEKS. YOU DID HAVE SOME BLOOD IN YOUR URINE. I WOULD RECOMMEND YOU RE-DO A URINE TEST AT YOUR [facility] APPOINTMENT TO ENSURE THIS HAS CLEARED. URINE WILL ALSO BE TESTED TODAY FOR GONORRHEA AND CHLAMYDIA. WE WILL CALL YOU WITH ANY ABNORMAL RESULTS. - Billing Disposition and Condition Condition: STABLE Disposition: Home
--- NOTE | 2018-12-24 07:11 | UC ---
- Progress Note Progress Note: notify pt re (+) herpes swab treatment appropriate Course/Dx - Diagnoses Provider Diagnoses: Genital herpes, Vaginitis Discharge - Sign-Out/Discharge Documenting (check all that apply): Post-Discharge Follow Up All imaging exams completed and their final reports reviewed: No Studies - Discharge Plan Condition: Stable Disposition: HOME Prescriptions: Fluconazole [Diflucan] 1 tab PO ONCE #2 tab metroNIDAZOLE [Flagyl 500 MG TAB] 500 mg PO BID #14 tab Valacyclovir HCl [Valacyclovir] 1,000 mg PO BID #14 tablet Patient Education Materials: Genital Herpes Simplex (ED), Vaginitis (ED), Hematuria (ED) Referrals: Brandyn Antunez, SUPERINTENDENT [employer]EV[employer] [Primary Care Provider] - If Needed Additional Instructions: YOU HAVE LESIONS ON YOUR LABIA THAT ARE CONSISTENT WITH GENITAL HERPES. TAKE THE VALACYCLOVIR TWICE DAILY FOR THE FULL COURSE. THIS WILL HELP EXPEDITE RESOLUTION OF YOUR LESIONS. YOU MUST NOTIFY YOUR SEXUAL PARTNERS. SWAB HAS BEEN SENT FOR TESTING. VAGINAL SWAB SENT TO TEST FOR VAGINITIS. DIFLUCAN FOR PROBABLE YEAST VAGINITIS. I WAS UNABLE TO VISUALIZE YOUR CERVIX TODAY. KEEP YOUR [facility] A COUPLE OF WEEKS. YOU DID HAVE SOME BLOOD IN YOUR URINE. I WOULD RECOMMEND YOU RE-DO A URINE TEST AT YOUR [facility] AP[facility]MENT TO ENSURE THIS HAS CLEARED. URINE WILL ALSO BE TESTED TODAY FOR GONORRHEA AND CHLAMYDIA. WE WILL CALL YOU WITH ANY ABNORMAL RESULTS. - Billing Disposition and Condition Condition: STABLE Disposition: Home
== END 2018-12-22 10:33 | disposition home or self-care (01) ==
LOC: UCEAST 08:28
DX: A60.00 Herpesviral infection of urogenital system, unspecified (principal); N76.0 Acute vaginitis; J45.909 Unspecified asthma, uncomplicated; F17.210 Nicotine dependence, cigarettes, uncomplicated; Z91.018 Allergy to other foods
CPT/HCPCS: 81003; 87480; 87491; 87510; 87529; 87591; 87660; 99212; G0463

== ENCOUNTER 2019-11-04 09:00 | Emergency (ER) | payer SELFPAY ==
[2019-11-04 09:22] VITALS: BP 150/102
--- NOTE | 2019-11-04 10:14 | UC ---
Throat Pain/Nasal Luis HPI - HPI Summary HPI Summary: 39-year-old female presents with 2-3 day history of progressively worsening sore throat as well as general malaise and fatigue. Denies fever, chills, ear pain, nasal congestion, dysphagia, cough, chest pain, shortness of breath, abdominal pain, nausea, or vomiting. - History of Current Complaint Chief Complaint: UCGeneralIllness Stated Complaint: THROAT COMPLAINT Time Seen by Provider: 11/04/19 10:08 Hx Obtained From: Patient Hx Last Menstrual Period: 11/03/19 Pain Intensity: 7 - Allergies/Home Medications Allergies/Adverse Reactions: Allergies Allergy/AdvReac Type Severity Reaction Status Date / Time kiwi Allergy Vomiting Verified 11/04/19 09:22 shrimp Allergy Vomiting Verified 11/04/19 09:22 PMH/Surg Hx/FS Hx/Imm Hx Previously Healthy: Yes - Denies significant PMH - Surgical History Surgical History: Yes Surgery Procedure, Year, and Place: Right tube removed r/t ectopic - Family History Known Family History: Positive: Respiratory Disease - asthma Negative: Cardiac Disease, Hypertension - Social History Occupation: Employed Full-time Lives: Alone Alcohol Use: Occasionally Substance Use Type: None Substance Use Comment - Amount & Last Used: 3 days Smoking Status (MU): Heavy Every Day Tobacco Smoker Type: Cigarettes Amount Used/How Often: 1 ppd Length of Time of Smoking/Using Tobacco: started age 15 Have You Smoked in the Last Year: Yes Household Exposure Type: Cigarettes - Immunization History Most Recent Influenza Vaccination: Not the 2017/2018 Season Review of Systems All Other Systems Reviewed And Are Negative: Yes Constitutional: Negative: Fever, Chills Skin: Negative: Rash Eyes: Negative: Drainage, Eye Redness ENT: Positive: Sore Throat. Negative: Ear Ache, Nasal Discharge, Sinus Congestion, Sinus Pain/Tenderness Respiratory: Negative: Cough Cardiovascular: Positive: Negative Gastrointestinal: Negative: Abdominal Pain, Vomiting, Nausea Genitourinary: Positive: Negative Musculoskeletal: Positive: Negative Neurological: Positive: Negative Is Patient Immunocompromised?: No Physical Exam - Summary Physical Exam Summary: GENERAL APPEARANCE: Well developed, well nourished, alert and cooperative, and appears to be in no acute distress. EYES: Conjunctiva clear. No drainage. EARS: External auditory canals and tympanic membranes clear, hearing grossly intact. NOSE: No nasal discharge. THROAT: Pharyngeal erythema with 2+ tonsils with exudate. Uvula midline. NECK: Neck supple, non-tender with mild anterior cervical lymphadenopathy. CARDIAC: Normal S1 and S2. No S3, S4 or murmurs. Rhythm is regular. There is no peripheral edema, cyanosis or pallor. Extremities are warm and well perfused. Capillary refill is less than 2 seconds. Peripheral pulses intact. LUNGS: Clear to auscultation without rales, rhonchi, wheezing or diminished breath sounds. ABDOMEN: Positive bowel sounds. Soft, nondistended, nontender. No guarding or rebound. No masses or hepatosplenomegally. MUSKULOSKELETAL: ROM intact to all extremities. No joint erythema or tenderness. Normal muscular development. Normal gait. SKIN: Skin normal color, texture and turgor with no lesions or eruptions. Triage Information Reviewed: Yes Vital Signs: Initial Vital Signs Temp 98.8 F 11/04/19 09:19 Pulse 89 11/04/19 09:19 Resp 18 11/04/19 09:19 BP 150/102 11/04/19 09:19 Pulse Ox 100 11/04/19 09:19 Vital Signs Reviewed: Yes Throat Pain/Nasal Course/Dx - Course Course Of Treatment: 39-year-old female presents with 2-3 day history of progressively worsening sore throat as well as general malaise and fatigue. Denies fever, chills, ear pain, nasal congestion, dysphagia, cough, chest pain, shortness of breath, abdominal pain, nausea, or vomiting. Afebrile. Hypertensive otherwise vital signs stable. Patient had pharyngeal erythema with 2+ tonsils with exudate, mild anterior cervical lymphadenopathy, and otherwise unremarkable exam. Rapid strep test was positive. Results reviewed with the patient. We'll treat with amoxicillin 500 mg twice a day 10 days as well as symptomatic treatment. Patient is to follow-up with her primary care provider in 3 days if symptoms are not improving. Anticipatory guidance symptoms reviewed with the patient. Verbalizes understanding and agrees with plan of care. - Differential Dx/Diagnosis Differential Diagnosis/HQI/PQRI: Mononucleosis, Peritonsillar Abscess, Pharyngitis, Tonsillitis Provider Diagnosis: Strep pharyngitis Discharge ED - Sign-Out/Discharge Documenting (check all that apply): Patient Departure All imaging exams completed and their final reports reviewed: No Studies - Discharge Plan Condition: Stable Disposition: HOME Prescriptions: Amoxicillin PO (*) [Amoxicillin 500 MG CAP*] 500 mg PO Q12H 10 Days #20 cap Patient Education Materials: Strep Throat (ED) Forms: *Work Release Referrals: Brandyn Antunez NP [Primary Care Provider] - 3 Days Additional Instructions: Your rapid strep test in the clinic today was positive. We will start you on an antibiotic to treat the infection. Start amoxicillin 500 mg 1 capsule twice a day for 10 days. After you have been on antibiotics for 3 days, throw out your toothbrush and replace with a new one to prevent reinfection. Drink plenty of fluids to avoid dehydration especially if you are running any fever. Use salt water gargles several times a day. Take over the counter acetaminophen (Tylenol) or ibuprofen (Advil, Motrin) according to directions as needed for pain or fever. You may also use Chloraseptic spray or Cepacol lonzenges according to directions which contain a numbing medication and can provide some temporary relief from your sore throat. Return here or follow up with your primary care provider in 3-5 days if symptoms do not improve. Seek immediate medical attention in the emergency room if you have fever greater than 100.5 F despite taking acetaminophen or ibuprofen, are unable to swallow or develop drooling, are unable to open your mouth fully, are unable to eat or drink, have pain that is not relieved with over the counter pain medication, have any difficulty breathing, or any worsening of symptoms. - Billing Disposition and Condition Condition: STABLE Disposition: Home
== END 2019-11-04 10:28 | disposition home or self-care (01) ==
LOC: UCEAST 09:00
DX: J02.0 Streptococcal pharyngitis (principal); R53.83 Other fatigue; R53.81 Other malaise; F17.210 Nicotine dependence, cigarettes, uncomplicated; Z91.018 Allergy to other foods; Z91.013 Allergy to seafood
CPT/HCPCS: 87651; 99212; G0463